=== PATIENT | female | born 1960 | race Caucasian/White ===

== ENCOUNTER 2023-05-07 05:55 | Inpatient (IN) | payer MEDICARE, OTHER ==
[2023-05-07] MEDS ORDERED: ONDANSETRON 4 MG/2 ML VIAL IVP STA (06:15)
[2023-05-07] MEDS ORDERED: SODIUM CHLORIDE 0.9% 1,000 ML IV STA (06:15)
[2023-05-07] MEDS ORDERED: HYDROmorphone 0.5 MG/0.5 ML SYRINGE IVP STA ×2 (06:15→09:42)
[2023-05-07 06:35] LABS: Basophils % (A) 0 %; Eosinophils # (A) 0.3 k/uL (0-0.7); Eosinophils % (A) 4 %; HCT 42.6 % (34.0-46.0); Lymphocytes # (A) 2.8 k/uL (1.0-4.8); Lymphocytes % (A) 39 %; MCH 30.1 pg (25.0-35.0); MCHC 32.8 g/dL (31.0-37.0); MCV 91.6 fL (80.0-100.0); Mean Platelet Volume 7.9; Monocytes # (A) 0.5 k/uL (0-1.0); Monocytes % (A) 7 %; Neutrophils # (A) 3.4 k/uL (1.3-7.7); Neutrophils % (A) 48 %; Platelet Count 250 k/uL (150-450); RBC 4.64 m/uL (3.80-5.40); RDW 14.2 % (11.5-15.5); WBC 7.2 k/uL (3.8-10.6)
[2023-05-07 06:44] LABS: ALT 32 U/L (4-34); AST 29 U/L (14-36); African American GFR (CKD) >90 (>60 ml/min/1.73 sqM); Albumin 4.1 g/dL (3.5-5.0); Alkaline Phosphatase 65 U/L (38-126); Anion Gap 5 mmol/L; Blood Urea Nitrogen 20 mg/dL (7-17); Calcium 9.2 mg/dL (8.4-10.2); Carbon Dioxide 27 mmol/L (22-30); Chloride 106 mmol/L (98-107); Glucose 146 mg/dL (74-99); Magnesium 1.9 mg/dL (1.6-2.3); Non-African American GFR(CKD) >90 (>60 ml/min/1.73 sqM); Potassium 4.3 mmol/L (3.5-5.1); Sodium 138 mmol/L (137-145); Total Bilirubin 0.5 mg/dL (0.2-1.3); Total Protein 7.1 g/dL (6.3-8.2)
--- NOTE | 2023-05-07 06:52 | XR ---
EXAMINATION TYPE: XR chest 2V DATE OF EXAM: 05/07/2023 6:48 AM COMPARISON: None TECHNIQUE: XR chest 2V Frontal and lateral views of the chest. CLINICAL INDICATION:Female, 62 years old with history of Chest Pain; FINDINGS: Lungs/Pleura: There is no evidence of pleural effusion, focal consolidation, or pneumothorax. Elevat ion the right hemidiaphragm. Pulmonary vascularity: Unremarkable. Heart/mediastinum: Cardiomediastinal silhouette is unremarkable. Musculoskeletal: No acute osseous pathology. IMPRESSION: 1. No acute cardiopulmonary disease/process. 2. Elevation of the right hemidiaphragm.
[2023-05-07 06:53] LABS: NT-Pro-B-Type Natriuretic Pept <20 pg/mL
--- NOTE | 2023-05-07 07:03 | ED ---
Chest Pain HPI - General Chief Complaint: Chest Pain Stated Complaint: Chest and abdominal Pain Time Seen by Provider: 05/07/23 06:07 Source: patient, RN notes reviewed Mode of arrival: ambulatory Limitations: no limitations - History of Present Illness Initial Comments: 62-year-old female presents emergency Department with chief complaint of abdominal, or chest pain. Patient states started a couple hours prior arrival states that she does reflux for this. States that pain is worse when she takes a deep inspiration wrapping around her upper abdomen. Patient states that she lays on its worse. She denies any fevers or chills she developed some nausea site vomiting. No diarrhea no constipation denies any other associated symptoms. - Related Data Home Medications Medication Instructions Recorded Confirmed Cyclobenzaprine [Flexeril] 5 mg PO BID PRN 05/07/23 05/07/23 DULoxetine HCL [Cymbalta] 120 mg PO DAILY 05/07/23 05/07/23 Ergocalciferol [Vitamin D2 (1250 1,250 mcg PO WE 05/07/23 05/07/23 Mcg = 08733 Iu)] HYDROcodone/APAP 10-325MG [[place] 1 tab PO Q6H PRN 05/07/23 05/07/23 10-325] Mirtazapine [Remeron] 30 mg PO HS 05/07/23 05/07/23 busPIRone HCL 15 mg PO DAILY 05/07/23 05/07/23 busPIRone HCL 30 mg PO HS 05/07/23 05/07/23 metHOTREXate sodium [Methotrexate] 7.5 mg PO WE 05/07/23 05/07/23 Previous Rx's Medication Instructions Recorded Acetaminophen Tab [Tylenol] 650 mg PO Q6HR PRN tab 05/11/23 Albuterol Inhaler [Ventolin Hfa 2 puff INHALATION Q6H PRN 30 Days 05/11/23 Inhaler] #1 each Amoxic-Pot Clav 875-125Mg 1 tab PO Q12HR 7 Days #14 tab 05/11/23 [Augmentin 875-125] Benzocaine/Menthol Lozeng [Cepacol 1 each MUCOUS MEM Q4HR PRN lozenge 05/11/23 lozenge] Budesonide-Formot 160-4.5 Mcg 2 puff INHALATION BID 30 Days 05/11/23 [Symbicort 160-4.5 Mcg Inhaler] #10.2 gm Fluticasone Nasal [place] [Flonase 2 spray EA NOSTRIL DAILY #7 ml 05/11/23 Nasal [place]] Loratadine [Claritin] 5 mg PO DAILY #30 tab 05/11/23 predniSONE 10 mg PO DIRECTED #30 tab 05/11/23 Allergies Allergy/AdvReac Type Severity Reaction Status Date / Time No Known Allergies Allergy Verified 05/07/23 11:26 Review of Systems ROS Statement: Those systems with pertinent positive or pertinent negative responses have been documented in the HPI. ROS Other: All systems not noted in ROS Statement are negative. EKG Findings - EKG Comments: EKG Findings:: EKG performed at 6:06 sinus rhythm with rate of 91 [place] 174 QRS 101 QT/QTC 343/392, noted Q waves in lead 3, inverted T waves nonspecific - EKG Results: EKG: interpreted by RK Past Medical History Past Medical History: Diabetes Mellitus Past Surgical History: No Surgical Hx Reported Smoking Status: Never smoker Past Alcohol Use History: None Reported Past Drug Use History: None Reported - Past Family History Mother Family Medical History: Cancer Additional Family Medical History / Comment(s): ovarian cancer General Exam Limitations: no limitations General appearance: alert, in no apparent distress Head exam: Present: atraumatic, normocephalic, normal inspection Eye exam: Present: normal appearance, PERRL, EOMI. Absent: scleral icterus, conjunctival injection, periorbital swelling ENT exam: Present: normal exam, normal oropharynx, mucous membranes moist Neck exam: Present: normal inspection, full ROM. Absent: tenderness, meningismus, lymphadenopathy Respiratory exam: Present: normal lung sounds bilaterally. Absent: respiratory distress, wheezes, rales, rhonchi, stridor Cardiovascular Exam: Present: regular rate, normal rhythm, normal heart sounds. Absent: systolic murmur, diastolic murmur, rubs, gallop, clicks GI/Abdominal exam: Present: soft, tenderness, normal bowel sounds. Absent: distended, guarding, rebound, rigid Back exam: Absent: CVA tenderness (R), CVA tenderness (L) Neurological exam: Present: alert Skin exam: Present: warm, dry, intact, normal color. Absent: rash Course Vital Signs 05/07/23 05/07/23 05/07/23 05:59 06:58 07:20 Temperature 98.8 F Pulse Rate 95 95 70 Respiratory 19 18 18 Rate Blood Pressure 136/67 107/69 O2 Sat by Pulse 94 L 94 L 97 Oximetry 05/07/23 05/07/23 09:05 11:07 Temperature Pulse Rate 82 76 Respiratory 18 18 Rate Blood Pressure 103/48 137/81 O2 Sat by Pulse 91 L 91 L Oximetry Chest Pain MDM - MDM Was pt. sent in by a medical professional or institution (, PA, PSYCHOTHERAPIST COUNSELOR, urgent care, hospital, or shelter...) When possible be specific @ -No Did you speak to anyone other than the patient for history (EMS, parent, family, police, friend...)? What history was obtained from this source @ -No Did you review nursing and triage notes (agree or disagree)? Why? @ -I reviewed and agree with nursing and triage notes Were old charts reviewed (outside hosp., previous admission, EMS record, old EKG, old radiological studies, urgent care reports/EKG's, shelter records)? Report findings @ -No old charts were reviewed Differential Diagnosis (chest pain, altered mental status, abdominal pain women, abdominal pain men, vaginal bleeding, weakness, fever, dyspnea, syncope, headache, dizziness, GI bleed, back pain, seizure, CVA, palpatations, mental health, musculoskeletal)? @ -Differential Abdominal Pain Women: Appendicitis, Cholecystitis, diverticulosis, ischemic bowel, pancreatitis, hepatitis, UTI, gastroenteritis, AAA, incarcerated hernia, bowel obstruction, constipation, inflammatory bowel, hepatitis, peptic ulcer disease, splenic infarction, perforated viscus, vulvitis, ovarian torsion, PID, kidney stone, placenta abruption, this is not meant to be an all-inclusive listble EKG interpreted by me (3pts min.). @ -As above X-rays interpreted by me (1pt min.). @ -Chest x-ray shows no significant acute coronary Department process CT interpreted by me (1pt min.). @ -CT chest abdomen pelvis shows atelectasis type changes, there is evidence of subscapular splenic hematoma with hemorrhage within the pelvis U/S interpreted by me (1pt. min.). @ -None done What testing was considered but not performed or refused? (CT, X-rays, U/S, labs)? Why? @ -None What meds were considered but not given or refused? Why? @ -None Did you discuss the management of the patient with other professionals (professionals i.e. , PA, PSYCHOTHERAPIST COUNSELOR, lab, RT, psych nurse, psychosocial rehabilitation counselor, installation supervisor, teacher, school services officer, case therapist)? Give summary @ -Discuss case with Dr. Garcia for admission secondary to splenic laceration, hematoma. Patient will be admitted with repeat appendicitis, further evaluation Was smoking cessation discussed for >3mins.? @ -No Was critical care preformed (if so, how long)? @ -No Were there social determinants of health that impacted care today? How? (Homelessness, low income, unemployed, alcoholism, drug addiction, transportation, low edu. Level, literacy, decrease access to med. care, residential, rehab)? @ -No Was there de-escalation of care discussed even if they declined (Discuss DNR or withdrawal of care, Hospice)? DNR status @ -No What co-morbidities impacted this encounter? (DM, HTN, Smoking, COPD, CAD, Cancer, CVA, ARF, Chemo, Hep., AIDS, mental health diagnosis, sleep apnea, morbid obesity)? @ -None Was patient admitted / discharged? Hospital course, mention meds given and route, prescriptions, significant lab abnormalities, going to OR and other pertinent info. @ -Admitted patient has splenic hematoma possible laceration, blood within the pelvis. Patient will have close monitoring. Undiagnosed new problem with uncertain prognosis? @ -No Drug Therapy requiring intensive monitoring for toxicity (Heparin, Nitro, Insulin, Cardizem)? @ -No Were any procedures done? @ -No Diagnosis/symptom? @ -Splenic hematoma Acute, or Chronic, or Acute on Chronic? @ -Acute Uncomplicated (without systemic symptoms) or Complicated (systemic symptoms)? @ -complicated Side effects of treatment? @ -No Exacerbation, Progression, or Severe Exacerbation? @ -No Poses a threat to life or bodily function? How? (Chest pain, [place], [place], pneumonia, PE, COPD, DKA, ARF, appy, cholecystitis, CVA, Diverticulitis, Homicidal, Suicidal, threat to staff... and all critical care pts) @ -yes patient has intra-abdominal bleeding Disposition Clinical Impression: Spleen hematoma, Intractable abdominal pain Disposition: ADMITTED IP TO THIS HOSP Condition: Stable Time of Disposition: 09:27
[2023-05-07] MEDS ORDERED: HYDROmorphone 1 MG/ML 1 ML SYRINGE IVP STA (07:12)
[2023-05-07 07:18] LABS: INR 0.9 (<1.2); Partial Thromboplastin Time 22.9 sec (22.0-30.0); Prothrombin Time 9.9 sec (9.0-12.0)
--- NOTE | 2023-05-07 07:54 | US ---
EXAMINATION TYPE: US gallbladder DATE OF EXAM: 05/07/2023 COMPARISON: NONE CLINICAL INDICATION: Female, 62 years old with history of pain; pain exam limited due to body habitus and bowel gas. TECHNIQUE: Multiple sonographic images of the right upper quadrant are obtained. FINDINGS: EXAM MEASUREMENTS: Liver Length: 14.1 cm Gallbladder Wall: .2 cm CBD: .6 cm Right Kidney: 11.4 x 5.5 x 4.1 cm NUT PICKER NOTES: Pancreas: Obscured by bowel gas Liver: Increased attenuation Gallbladder: No stones seen Evidence for sonographic Triana's sign: No CBD: wnl Right Kidney: No hydronephrosis or masses seen Pancreas is obscured by overlying bowel gas. Liver is diffusely hyperechoic which limits evaluation f or small hepatic masses. No gross evidence of intrahepatic mass. No cholelithiasis, wall thickening, pericholecystic fluid identified. Per accountant systems, negative sonographic Triana sign. Common bile duct within normal limits. Right kidney is unremarkable without evidence of hydronephrosis, nephrolithias is, or solid mass. IMPRESSION: Limited examination due to patient's body habitus and overlying bowel gas. 1. No acute process. 2. Hepatic steatosis.
[2023-05-07] MEDS ORDERED: KETOROLAC 15 MG/ML 1 ML VIAL IVP STA (09:03)
[2023-05-07] MEDS ORDERED: ORPHENADRINE 30 MG/ML 2 ML VIAL IVP STA (09:07)
--- NOTE | 2023-05-07 09:16 | CT ---
EXAMINATION TYPE: CT abdomen pelvis w con CT DLP: 2090.1 mGycm, Automated exposure control for dose reduction was used. DATE OF EXAM: 05/07/2023 8:58 AM COMPARISON: Gallbladder ultrasound same date. CLINICAL INDICATION:Female, 62 years old with history of pain, radiates to back; Pain, radiates to ba ck TECHNIQUE: Standard CT of the abdomen and pelvis following the administration of 100 cc of Isovue 3 00 IV contrast material. Coronal and sagittal reformats were performed. FINDINGS: LOWER CHEST: Please see dedicated CTA chest for findings ABDOMEN LIVER: Hepatic lobe 1.5 cm hypodense lesion (series 501, image 32). Additional couple subcentimeter h ypodense foci within the liver which are too small to accurately characterize. GALLBLADDER AND BILE DUCTS: Unremarkable. PANCREAS: Unremarkable. SPLEEN: Heterogenous appearance with a subcapsular hematoma measuring 9.5 x 1.9 cm. No obvious active extravasation. Heterogenous appearance of the spleen. ADRENAL GLANDS: Unremarkable. KIDNEYS AND URETERS: No evidence of hydronephrosis or renal calculus. The kidneys enhance symmetrical ly. Subcentimeter hypodense focus within the which is too small characterize but likely represents a cyst. PELVIS BLADDER: Unremarkable REPRODUCTIVE: Unremarkable. ABDOMEN & PELVIS STOMACH AND BOWEL: Stomach and duodenum are unremarkable. The appendix is within normal limits. No fo jake wall thickening or surrounding inflammatory changes. Moderate amount of stool is present within t he ascending colon. Distal colonic diverticulosis without evidence for acute diverticulitis. No evide nce of bowel obstruction. PERITONEUM: No evidence of pneumoperitoneum. Small amount of complex fluid demonstrated within the pe lvis and paracolic gutter. VASCULATURE: No evidence of aortic aneurysm. Few pelvic phlebolith. MUSCULOSKELETAL: No acute osseous abnormalities LYMPH NODES: No gross evidence for lymphadenopathy. SOFT TISSUE/ABDOMINAL WALL: Small fat filled umbilical hernia. IMPRESSION: 1. Moderate size subcapsular splenic hematoma. Heterogenous appearance of the spleen. No convincing evidence for active extravasation. 2. Small amount of complex fluid within the left paracolic gutter and pelvis likely representing hemo rrhage. 3. Indeterminate echodense right hepatic lobe 1.5 cm lesion. Probable hemangioma. This could further confirmed with CT or MR abdomen liver mass protocol. 4. Colonic diverticulosis without evidence for acute diverticulitis. Findings called to and discussed with Dr. Dedoe at 9:10 AM on 05/07/2023.
--- NOTE | 2023-05-07 09:18 | CT ---
EXAMINATION TYPE: CT chest angio for PE CT DLP: 2090.1 mGycm, Automated exposure control for dose reduction was used. DATE OF EXAM: 05/07/2023 8:59 AM COMPARISON: Chest radiograph from same day. CLINICAL INDICATION:Female, 62 years old with history of pain, sob elevated D Dimer; Chest and abdomi nal pain TECHNIQUE/CONTRAST: CTA scan of the thorax is performed without and with IV Contrast, patient injected with 100 ml mL of Isovue 370, pulmonary embolism protocol. MIP images are created and reviewed. FINDINGS: Pulmonary Artery: There is no evidence for a filling defect within the pulmonary vasculature to sugge st acute pulmonary embolism. The pulmonary artery is of normal size. Lungs/Pleura: No pleural effusion or pneumothorax. Elevation the right hemidiaphragm. Bibasilar subse gmental atelectasis. Airway: Large airways are patent. Heart: Mildly enlarged. No pericardial effusion. Vasculature: No evidence of aortic aneurysm. Mediastinum: No evidence of adenopathy. Musculoskeletal: No acute osseous abnormalities Soft Tissues: Unremarkable. Lower neck: No significant findings. Upper Abdomen: Please refer to dedicated CT abdomen pelvis of same day for findings. IMPRESSION: 1. No evidence of pulmonary embolism. 2. Bibasilar subsegmental atelectasis.
[2023-05-07] MEDS ORDERED: ONDANSETRON 4 MG/2 ML VIAL IVP PRN (09:27)
[2023-05-07] MEDS ORDERED: NALOXONE 0.4 MG/ML 1 ML VIAL IV PRN (09:27)
[2023-05-07 09:39] LABS: Appearance,Urine Clear (Clear); Bilirubin,Urine Negative (Negative); Blood,Urine Negative (Negative); Glucose,Urine (UA) Trace (Negative); Ketones,Urine Trace (Negative); Leukocyte Esterase,Urine Negative (Negative); Nitrite,Urine Negative (Negative); PH, Urine 5.5 (5.0-8.0); Protein,Urine Trace (Negative)
[2023-05-07 09:40] LABS: Color,Urine Yellow; Specific Gravity,Urine >1.050 (1.001-1.035)
[2023-05-07 11:39] LABS: Basophils % (A) 0 %; Eosinophils # (A) 0.2 k/uL (0-0.7); Eosinophils % (A) 3 %; HCT 35.9 % (34.0-46.0); Lymphocytes # (A) 2.1 k/uL (1.0-4.8); Lymphocytes % (A) 35 %; MCHC 33.5 g/dL (31.0-37.0); MCV 92.8 fL (80.0-100.0); Mean Platelet Volume 8.4; Monocytes # (A) 0.5 k/uL (0-1.0); Monocytes % (A) 8 %; Neutrophils % (A) 51 %; Platelet Count 231 k/uL (150-450); RBC 3.87 m/uL (3.80-5.40); RDW 14.3 % (11.5-15.5); WBC 5.9 k/uL (3.8-10.6)
--- NOTE | 2023-05-07 12:31 | P.CONS ---
History of Present Illness - Reason for Consult Consult date: 05/07/23 Medical management - History of Present Illness History of present illness; patient is 62-year-old lady who is visiting [place] from [place] came to the ER because of abdominal pain. Patient sta wilian that she woke up this morning with abdominal pain that was located in the epigastric area, radiating towards her back. Associated with nausea and vomiting. Denied any fever or chills. Patient stated she felt as if something was wrapped around her upper part of abdominal. Denies any recent trauma to her belly. Denies being on any blood thinners. It was no complain of any altered bowel movements. Denies any blood in her stools. Denied any blood in the vomiting. Because of the symptoms patient came to the ER Initial lab work done in the ER showed CT abdominal and pelvis done showed moderate sized subcapsular splenic hematoma. Small amount of complex fluid in the left paracolic gutter and pelvis likely representing hemorrhage. Indeterminate echo dense right hepatic lobe, probable hemangioma. CT chest done showed no evidence of PE, bibasilar subsegmental atelectasis EKG done in the ER showed ventricle rate 91, QRS 101, no ST segment elevation seen, T-wave inversion seen in V3 leads Patient admitted to surgery REVIEW OF SYSTEMS: CONSTITUTIONAL: No fever, no malaise, no fatigue. HEENT: No recent visual problems or hearing problems. Denied any sore throat. CARDIOVASCULAR: No chest pain, orthopnea, PND, no palpitations, no syncope. PULMONARY: No shortness of breath, no cough, no hemoptysis. GASTROINTESTINAL: As mentioned in HPI NEUROLOGICAL: No headaches, no weakness, no numbness. HEMATOLOGICAL: Denies any bleeding or petechiae. GENITOURINARY: Denies any burning micturition, frequency, or urgency. MUSCULOSKELETAL/RHEUMATOLOGICAL: Denies any joint pain, swelling, or any muscle pain. ENDOCRINE: Denies any polyuria or polydipsia. The rest of the 14-point review of systems is negative. PHYSICAL EXAMINATION: GENERAL: The patient is alert and oriented x3, not in any acute distress. Well developed, well nourished. HEENT: Pupils are round and equally reacting to light. EOMI. No scleral icterus. No conjunctival pallor. Normocephalic, atraumatic. No pharyngeal erythema. No thyromegaly. CARDIOVASCULAR: S1 and S2 present. No murmurs, rubs, or gallops. PULMONARY: Chest is clear to auscultation, no wheezing or crackles. ABDOMEN: Soft, tenderness left upper quadrant, normoactive bowel sounds. No palpable organomegaly. MUSCULOSKELETAL: No joint swelling or deformity. EXTREMITIES: No cyanosis, clubbing, or pedal edema. NEUROLOGICAL: Gross neurological examination did not reveal any focal deficits. SKIN: No rashes. Assessment and plan Abdominal pain Subcapsular splenic hematoma Complex fluid in the left paracolic gutter representing hemorrhage History of fibromyalgia Monitor vital signs Monitor CBC Monitor CMP Continue telemetry monitoring Monitor CBC Trend troponins Continue pain management per surgery Resume home meds Labs and medication were reviewed.. Continue same treatment. Continue with symptomatic treatment. Resume home medication. Monitor labs and vitals. DVT and GI prophylaxis. Further recommendations as per clinical course of the patient Dictation was produced using [employer] dictation software. please excuse any grammatical, word or spelling errors. Past Medical History Past Medical History: Diabetes Mellitus Past Surgical History: No Surgical Hx Reported Smoking Status: Never smoker Past Alcohol Use History: None Reported Past Drug Use History: None Reported Medications and Allergies Home Medications Medication Instructions Recorded Confirmed Type Cyclobenzaprine [Flexeril] 5 mg PO BID PRN 05/07/23 05/07/23 History DULoxetine HCL [Cymbalta] 120 mg PO DAILY 05/07/23 05/07/23 History Ergocalciferol [Vitamin D2 (1250 1,250 mcg PO WE 05/07/23 05/07/23 History Mcg = 46302 Iu)] HYDROcodone/APAP 10-325MG [[place] 1 tab PO Q6H PRN 05/07/23 05/07/23 History 10-325] Mirtazapine [Remeron] 30 mg PO HS 05/07/23 05/07/23 History busPIRone HCL 15 mg PO DAILY 05/07/23 05/07/23 History busPIRone HCL 30 mg PO HS 05/07/23 05/07/23 History metHOTREXate sodium [Methotrexate] 7.5 mg PO WE 05/07/23 05/07/23 History Allergies Allergy/AdvReac Type Severity Reaction Status Date / Time No Known Allergies Allergy Verified 05/07/23 11:26 Physical Exam Vitals: Vital Signs Temp Pulse Resp BP Pulse Ox 05/07/23 11:07 76 18 137/81 91 L 05/07/23 09:05 82 18 103/48 91 L 05/07/23 07:20 70 18 97 05/07/23 06:58 95 18 107/69 94 L 05/07/23 05:59 98.8 F 95 19 136/67 94 L Intake and Output 05/06/23 05/07/23 05/07/23 22:59 06:59 14:59 Other: Weight 86.183 kg Results CBC & Chem 7: 05/07/23 11:00 05/07/23 06:23 Labs: Abnormal Lab Results - Last 24 Hours (Table) 05/07/23 05/07/23 05/07/23 Range/Units 06:23 06:23 09:17 D-Dimer 0.71 H (<0.60) mg/L FEU BUN 20 H (7-17) mg/dL Glucose 146 H (74-99) mg/dL Ur Specific [place] >1.050 H (1.001-1.035) Urine Protein Trace H (Negative) Urine Glucose (UA) Trace H (Negative) Urine Ketones Trace H (Negative)
[2023-05-07] MEDS: HYDROmorphone 0.5 MG/0.5 ML SYRINGE IVP PRN (13:39)
--- NOTE | 2023-05-07 14:24 | P.GSHP ---
History of Present Illness H&P Date: 05/07/23 Chief Complaint: Splenic hematoma This a 8-year-old female who presented emergently complaints of left upper quadrant pain. Patient was worked up found have evidence of a splenic hematoma on computed tomography scan. Patient denies any history of trauma. She states she's had no falls or any traumatic injury of any sort. Patient does not take blood thinners. Past Medical History Past Medical History: Diabetes Mellitus Past Surgical History: No Surgical Hx Reported Smoking Status: Never smoker Past Alcohol Use History: None Reported Past Drug Use History: None Reported Medications and Allergies Home Medications Medication Instructions Recorded Confirmed Type Cyclobenzaprine [Flexeril] 5 mg PO BID PRN 05/07/23 05/07/23 History DULoxetine HCL [Cymbalta] 120 mg PO DAILY 05/07/23 05/07/23 History Ergocalciferol [Vitamin D2 (1250 1,250 mcg PO WE 05/07/23 05/07/23 History Mcg = 59446 Iu)] HYDROcodone/APAP 10-325MG [[place] 1 tab PO Q6H PRN 05/07/23 05/07/23 History 10-325] Mirtazapine [Remeron] 30 mg PO HS 05/07/23 05/07/23 History busPIRone HCL 15 mg PO DAILY 05/07/23 05/07/23 History busPIRone HCL 30 mg PO HS 05/07/23 05/07/23 History metHOTREXate sodium [Methotrexate] 7.5 mg PO WE 05/07/23 05/07/23 History Allergies Allergy/AdvReac Type Severity Reaction Status Date / Time No Known Allergies Allergy Verified 05/07/23 11:26 Surgical - Exam Vital Signs Temp Pulse Resp BP Pulse Ox 98.8 F 95 19 136/67 94 L 05/07/23 05:59 05/07/23 05:59 05/07/23 05:59 05/07/23 05:59 05/07/23 05:59 - General well developed, well nourished, no distress - Eyes PERRL - ENT normal pinna - Neck no masses - Respiratory normal expansion - Cardiovascular Rhythm: regular - Abdomen Mild left upper quadrant tenderness Abdomen: soft Results - Labs 05/07/23 11:00 05/07/23 06:23 Abnormal Lab Results - Last 24 Hours (Table) 05/07/23 05/07/23 05/07/23 Range/Units 06:23 06: 09:17 D-Dimer 0.71 H (<0.60) mg/L FEU BUN 20 H (7-17) mg/dL Glucose 146 H (74-99) mg/dL Ur Specific [place] >1.050 H (1.001-1.035) Urine Protein Trace H (Negative) Urine Glucose (UA) Trace H (Negative) Urine Ketones Trace H (Negative) Diabetes panel 05/07/23 Range/Units 06:23 Sodium 138 (137-145) mmol/L Potassium 4.3 (3.5-5.1) mmol/L Chloride 106 (98-107) mmol/L Carbon Dioxide 27 (22-30) mmol/L BUN 20 H (7-17) mg/dL Creatinine 0.69 (0.52-1.04) mg/dL Glucose 146 H (74-99) mg/dL Calcium 9.2 (8.4-10.2) mg/dL AST 29 (14-36) U/L ALT 32 (4-34) U/L Alkaline Phosphatase 65 (38-126) U/L Total Protein 7.1 (6.3-8.2) g/dL Albumin 4.1 (3.5-5.0) g/dL Calcium panel 05/07/23 Range/Units 06: Calcium 9.2 (8.4-10.2) mg/dL Albumin 4.1 (3.5-5.0) g/dL Pituitary panel 05/07/23 Range/Units 06:23 Sodium 138 (137-145) mmol/L Potassium 4.3 (3.5-5.1) mmol/L Chloride 106 (98-107) mmol/L Carbon Dioxide 27 (22-30) mmol/L BUN 20 H (7-17) mg/dL Creatinine 0.69 (0.52-1.04) mg/dL Glucose 146 H (74-99) mg/dL Calcium 9.2 (8.4-10.2) mg/dL Adrenal panel 05/07/23 Range/Units 06:23 Sodium 138 (137-145) mmol/L Potassium 4.3 (3.5-5.1) mmol/L Chloride 106 (98-107) mmol/L Carbon Dioxide 27 (22-30) mmol/L BUN 20 H (7-17) mg/dL Creatinine 0.69 (0.52-1.04) mg/dL Glucose 146 H (74-99) mg/dL Calcium 9.2 (8.4-10.2) mg/dL Total Bilirubin 0.5 (0.2-1.3) mg/dL AST 29 (14-36) U/L ALT 32 (4-34) U/L Alkaline Phosphatase 65 (38-126) U/L Total Protein 7.1 (6.3-8.2) g/dL Albumin 4.1 (3.5-5.0) g/dL - Imaging CT scan - abdomen: report reviewed (Subcapsular splenic hematoma) Assessment and Plan Assessment: Spontaneous splenic hematoma. Patient will be observed closely. If she shows any evidence of bleeding she may require exploratory laparotomy.
[2023-05-07] MEDS: HYDROmorphone 1 MG/ML 1 ML SYRINGE IVP PRN ×3 (15:56→21:57)
[2023-05-07 16:22] LABS: Glucose,Whole Blood 115 mg/dL (70-110)
[2023-05-07] MEDS: CYCLOBENZAPRINE 5 MG TAB PO PRN (18:48)
[2023-05-07] MEDS: busPIRone HCl 10 MG TAB PO SCH (21:10)
[2023-05-07] MEDS: BUTALB/APAP/CAFF 50-325-40MG TAB PO PRN (21:10)
[2023-05-07] MEDS: MIRTAZAPINE 15 MG TAB PO SCH (21:10)
[2023-05-07 21:59] LABS: HGB 11.7 gm/dL (11.4-16.0); Hypochromasia Slight; MCH 30.2 pg (25.0-35.0); MCHC 31.7 g/dL (31.0-37.0); MCV 95.5 fL (80.0-100.0); Mean Platelet Volume 9.8; Platelet Count 246 k/uL (150-450); RBC 3.88 m/uL (3.80-5.40); RDW 14.3 % (11.5-15.5); WBC 8.5 k/uL (3.8-10.6)
[2023-05-07 22:46] LABS: Glucose,Whole Blood 173 mg/dL (70-110)
[2023-05-07 23:29] LABS: Glucose,Whole Blood 152 mg/dL (70-110)
[2023-05-08] MEDS: HYDROmorphone 1 MG/ML 1 ML SYRINGE IVP PRN ×3 (02:29→12:12)
[2023-05-08 03:18] LABS: Basophils % (A) 0 %; Eosinophils # (A) 0.1 k/uL (0-0.7); Eosinophils % (A) 1 %; HGB 10.5 gm/dL (11.4-16.0); Lymphocytes # (A) 1.7 k/uL (1.0-4.8); Lymphocytes % (A) 25 %; MCH 31.1 pg (25.0-35.0); MCHC 32.9 g/dL (31.0-37.0); MCV 94.4 fL (80.0-100.0); Mean Platelet Volume 8.6; Monocytes # (A) 0.4 k/uL (0-1.0); Monocytes % (A) 7 %; Neutrophils # (A) 4.4 k/uL (1.3-7.7); Neutrophils % (A) 65 %; Platelet Count 207 k/uL (150-450); RBC 3.39 m/uL (3.80-5.40); RDW 14.5 % (11.5-15.5); WBC 6.8 k/uL (3.8-10.6)
[2023-05-08 05:49] LABS: Glucose,Whole Blood 161 mg/dL (70-110)
[2023-05-08 08:20] LABS: Basophils % (A) 0 %; Eosinophils # (A) 0.1 k/uL (0-0.7); Eosinophils % (A) 2 %; HCT 30.4 % (34.0-46.0); HGB 9.9 gm/dL (11.4-16.0); Lymphocytes # (A) 1.8 k/uL (1.0-4.8); Lymphocytes % (A) 31 %; MCH 30.4 pg (25.0-35.0); MCHC 32.5 g/dL (31.0-37.0); MCV 93.6 fL (80.0-100.0); Mean Platelet Volume 8.9; Monocytes # (A) 0.5 k/uL (0-1.0); Monocytes % (A) 9 %; Neutrophils # (A) 3.3 k/uL (1.3-7.7); Neutrophils % (A) 56 %; Platelet Count 178 k/uL (150-450); RBC 3.24 m/uL (3.80-5.40); RDW 14.3 % (11.5-15.5); WBC 5.9 k/uL (3.8-10.6)
[2023-05-08] MEDS: busPIRone HCl 5 MG TAB PO SCH (08:56)
[2023-05-08] MEDS: DULoxetine HCL 60 MG CAPSULE.DR PO SCH (08:56)
[2023-05-08] MEDS: CYCLOBENZAPRINE 5 MG TAB PO PRN ×2 (09:07→22:48)
[2023-05-08] MEDS: BUTALB/APAP/CAFF 50-325-40MG TAB PO PRN ×2 (09:07→14:41)
[2023-05-08 11:49] LABS: Glucose,Whole Blood 129 mg/dL (70-110)
[2023-05-08] MEDS ORDERED: BENZOCAINE/MENTHOL LOZENG 1 EACH LOZENGE MUCOUS MEM PRN (12:57)
[2023-05-08] MEDS ORDERED: IPRATROPIUM-ALBUTEROL 3 ML NEB INHALATION PRN (12:57)
[2023-05-08] MEDS ORDERED: DEXTROSE 50% SYRINGE 50 ML IVP PRN ×2 (12:58)
--- NOTE | 2023-05-08 13:32 | P.PN ---
Subjective Progress Note Date: 05/08/23 CHIEF COMPLAINT: Splenic hematoma HISTORY OF PRESENT ILLNESS: Patient reports that the left-sided abdominal pain is improving. She is complaining still of some right-sided abdominal pain. She rates the pain about a 4 out of 10. Her hemoglobin has decreased from 10.5-9.9. She has been up and ambulating. She denies any fall or somatic injury. She denies any blood thinners. Afebrile. PHYSICAL EXAM: VITAL SIGNS: Reviewed. GENERAL: Well-developed in no acute distress. ABDOMEN: Soft. Nondistended. Tenderness with palpation in the left upper quadrant epigastric and right upper quadrant NEUROLOGIC: Alert and oriented. Cranial nerves II through XII grossly intact. ASSESSMENT: 1. Spontaneous splenic hematoma PLAN: -Continue to observe -Start full liquid diet -Repeat CBC in a.m. -Continue pain management Physician Warranty Administrator note has been reviewed by physician. Signing provider agrees with the documented findings, assessment, and plan of care. Objective - Vital Signs Vital signs: Vital Signs Temp 99.6 F 05/08/23 07:46 Pulse 79 05/08/23 07:46 Resp 18 05/08/23 07:46 BP 125/65 05/08/23 07:46 Pulse Ox 94 L 05/08/23 07:46 FiO2 Intake & Output 05/07/23 05/08/23 05/08/23 18:59 06:59 18:59 Weight 86.183 kg Other: # Voids 3 2 - Labs CBC & Chem 7: 05/08/23 08:08 05/07/23 06:23 Labs: Abnormal Lab Results - Last 24 Hours (Table) 05/07/23 05/07/23 05/07/23 Range/Units 16:21 22:44 23:26 RBC (3.80-5.40) m/uL Hgb (11.4-16.0) gm/dL Hct (34.0-46.0) % POC Glucose (mg/dL) 115 H 173 H 152 H (70-110) mg/dL 05/08/23 05/08/23 05/08/23 Range/Units 02:54 05:44 08:08 RBC 3.39 L 3.24 L (3.80-5.40) m/uL Hgb 10.5 L 9.9 L (11.4-16.0) gm/dL Hct 32.0 L 30.4 L (34.0-46.0) % POC Glucose (mg/dL) 161 H (70-110) mg/dL 05/08/23 Range/Units 11:47 RBC (3.80-5.40) m/uL Hgb (11.4-16.0) gm/dL Hct (34.0-46.0) % POC Glucose (mg/dL) 129 H (70-110) mg/dL
[2023-05-08] MEDS: LORATADINE 10 MG TAB PO SCH (13:46)
[2023-05-08] MEDS: FLUTICASONE 50MCG/SPRAY NASAL 16GM EA NOSTRIL SCH (14:03)
[2023-05-08] MEDS: HYDROmorphone 0.5 MG/0.5 ML SYRINGE IVP PRN ×3 (14:42→22:46)
--- NOTE | 2023-05-08 15:41 | P.PN ---
Subjective Progress Note Date: 05/08/23 Patient is evaluated today resting in bed, reports abdominal pain has improved from yesterday. Hemoglobin dropped to 9.9 down from 14 on admission. Patient is being followed closely by general surgery and monitoring patient may possibly need an exploratory laparotomy. Additionally patient continues to report shortness of breath and requiring 2 L of nasal cannula with hypoxia down into the 80-89% on room air this is an ongoing over the last 3 weeks per patient. She is also reporting a cough. Patient has evidence of infiltrate on her imaging patient will be started on empiric antibiotics for possible pneumonia. Review of Systems Constitutional: Denied any fatigue denied any fever. Cardio vascular: denied any chest pain, palpitations Gastrointestinal: denied any nausea, vomiting, diarrhea Pulmonary: Denied any shortness of breath cough Neurologic denied any new focal deficits All inpatient medications were reviewed and appropriate changes in these medications as dictated in the interval history and assessment and plan. PHYSICAL EXAMINATION: GENERAL: The patient is alert and oriented x3, not in any acute distress. Well developed, well nourished. HEENT: Pupils are round and equally reacting to light. EOMI. No scleral icterus. No conjunctival pallor. Normocephalic, atraumatic. No pharyngeal erythema. No thyromegaly. CARDIOVASCULAR: S1 and S2 present. No murmurs, rubs, or gallops. PULMONARY: Coarse lung sounds bilateral bases ABDOMEN: Soft, nontender, nondistended, normoactive bowel sounds. No palpable organomegaly. MUSCULOSKELETAL: No joint swelling or deformity. EXTREMITIES: No cyanosis, clubbing, or pedal edema. NEUROLOGICAL: Gross neurological examination did not reveal any focal deficits. SKIN: No rashes. Assessment Abdominal pain with findings of splenic hematoma and left paracolic gutter hemorrhage on imaging Anemia possibly acute blood loss Acute hypoxic respiratory failure likely due to basilar atelectasis versus pneumonia Diabetes mellitus type 2 History of psoriatic arthritis History of migraines Remote history of DVT in her 22 depression GI prophylaxis DVT prophylaxis SCDs Full Code Plan Continue to monitor hemoglobin closely general surgery following patient may need exploratory laparotomy Check procalcitonin level, empiric antibiotics started with IV ceftriaxone Incentive spirometer recommended 10 x an hr while awake. Repeat CBC in a.m. The impression and plan of care has been dictated by Sapphire Augustine, Nurse Practitioner as directed. Dr. Nadir MD I have performed a history and physical examination and medical decision making of this patient, discussed the same with the dictator, and agree with the dictators assessment and plan as written, documented as a scribe. Based on total visit time, I have performed more than 50% of this visit. Objective - Vital Signs Vital signs: Vital Signs Temp 99.6 F 05/08/23 07:46 Pulse 79 05/08/23 07:46 Resp 18 05/08/23 07:46 BP 125/65 05/08/23 07:46 Pulse Ox 94 L 05/08/23 07:46 FiO2 Intake & Output 05/07/23 05/08/23 05/08/23 18:59 06:59 18:59 Weight 86.183 kg Other: # Voids 3 2 - Labs CBC & Chem 7: 05/08/23 08:08 05/07/23 06:23 Labs: Abnormal Lab Results - Last 24 Hours (Table) 05/07/23 05/07/23 05/07/23 Range/Units 16:21 22:44 23:26 RBC (3.80-5.40) m/uL Hgb (11.4-16.0) gm/dL Hct (34.0-46.0) % POC Glucose (mg/dL) 115 H 173 H 152 H (70-110) mg/dL 05/08/23 05/08/23 05/08/23 Range/Units 02:54 05:44 08:08 RBC 3.39 L 3.24 L (3.80-5.40) m/uL Hgb 10.5 L 9.9 L (11.4-16.0) gm/dL Hct 32.0 L 30.4 L (34.0-46.0) % POC Glucose (mg/dL) 161 H (70-110) mg/dL 05/08/23 Range/Units 11:47 RBC (3.80-5.40) m/uL Hgb (11.4-16.0) gm/dL Hct (34.0-46.0) % POC Glucose (mg/dL) 129 H (70-110) mg/dL Assessment and Plan Time with Patient: Less than 30
[2023-05-08] MEDS: IPRATROPIUM-ALBUTEROL 3 ML NEB INHALATION SCH ×2 (16:12→20:24)
[2023-05-08 16:53] LABS: Glucose,Whole Blood 129 mg/dL (70-110)
[2023-05-08] MEDS: INSULIN ASPART (NovoLOG) 100 UNIT/ML VIAL SQ SCH ×2 (17:32→22:04)
[2023-05-08 21:12] LABS: Glucose,Whole Blood 146 mg/dL (70-110)
[2023-05-08] MEDS: MIRTAZAPINE 15 MG TAB PO SCH (22:46)
[2023-05-08] MEDS: busPIRone HCl 10 MG TAB PO SCH (22:46)
[2023-05-09] MEDS: HYDROmorphone 0.5 MG/0.5 ML SYRINGE IVP PRN ×4 (01:45→20:14)
[2023-05-09 06:16] LABS: Glucose,Whole Blood 133 mg/dL (70-110)
[2023-05-09] MEDS: INSULIN ASPART (NovoLOG) 100 UNIT/ML VIAL SQ SCH ×4 (06:21→20:12)
[2023-05-09] MEDS: PANTOPRAZOLE 40 MG TABLET PO SCH (06:31)
[2023-05-09 07:04] LABS: HCT 27.5 % (34.0-46.0); MCH 30.7 pg (25.0-35.0); MCV 93.1 fL (80.0-100.0); Mean Platelet Volume 8.2; Platelet Count 158 k/uL (150-450); RBC 2.95 m/uL (3.80-5.40)
[2023-05-09] MEDS: IPRATROPIUM-ALBUTEROL 3 ML NEB INHALATION SCH ×4 (08:02→21:05)
[2023-05-09] MEDS: LORATADINE 10 MG TAB PO SCH (09:42)
[2023-05-09] MEDS: DULoxetine HCL 60 MG CAPSULE.DR PO SCH (09:42)
[2023-05-09] MEDS: busPIRone HCl 5 MG TAB PO SCH (09:42)
[2023-05-09] MEDS: FLUTICASONE 50MCG/SPRAY NASAL 16GM EA NOSTRIL SCH (09:43)
[2023-05-09] MEDS ORDERED: ACETAMINOPHEN TAB 325 MG TAB PO PRN (10:14)
[2023-05-09 12:03] LABS: Glucose,Whole Blood 157 mg/dL (70-110)
--- NOTE | 2023-05-09 13:59 | P.PN ---
Subjective Progress Note Date: 05/09/23 CHIEF COMPLAINT: Splenic hematoma HISTORY OF PRESENT ILLNESS: Patient reports that the left-sided abdominal pain is improving. She is complaining still of some right-sided abdominal pain. She rates the pain about a 3 out of 10. Her hemoglobin has decreased from 9.9 to 9.0. She has been up and ambulating. Patient did have a temp of 101.5 this morning. Medicine service has ordered a chest x-ray. Patient did report cough this morning. PHYSICAL EXAM: VITAL SIGNS: Reviewed. GENERAL: Well-developed in no acute distress. ABDOMEN: Soft. Nondistended. Tenderness with palpation in the left upper quadrant epigastric and right upper quadrant NEUROLOGIC: Alert and oriented. Cranial nerves II through XII grossly intact. ASSESSMENT: 1. Spontaneous splenic hematoma PLAN: -Continue to monitor -Continue full liquid diet -Repeat CBC in a.m. -Continue pain management -Encouraged patient to use incentive spirometer Physician Marine Biologist note has been reviewed by physician. Signing provider agrees with the documented findings, assessment, and plan of care. Objective - Vital Signs Vital signs: Vital Signs Temp 101.5 F H 05/09/23 07:52 Pulse 88 05/09/23 11:48 Resp 18 05/09/23 07:52 BP 109/57 05/09/23 07:52 Pulse Ox 94 L 05/09/23 08:05 FiO2 Intake & Output 05/08/23 05/09/23 05/09/23 18:59 06:59 18:59 Other: # Voids 2 2 - Labs CBC & Chem 7: 05/09/23 06:44 05/07/23 06:23 Labs: Abnormal Lab Results - Last 24 Hours (Table) 05/08/23 05/08/23 05/09/23 Range/Units 16:51 21:11 06:14 RBC (3.80-5.40) m/uL Hgb (11.4-16.0) gm/dL Hct (34.0-46.0) % POC Glucose (mg/dL) 129 H 146 H 133 H (70-110) mg/dL Hemoglobin A1c (<=6.0) % 05/09/23 05/09/23 05/09/23 Range/Units 06:44 06:44 11:58 RBC 2.95 L (3.80-5.40) m/uL Hgb 9.0 L (11.4-16.0) gm/dL Hct 27.5 L (34.0-46.0) % POC Glucose (mg/dL) 157 H (70-110) mg/dL Hemoglobin A1c 6.5 H (<=6.0) %
--- NOTE | 2023-05-09 15:58 | XR ---
EXAMINATION TYPE: XR chest 2V DATE OF EXAM: 05/09/2023 COMPARISON: 05/07/2023 TECHNIQUE: PA and lateral views submitted. HISTORY: FEVER AND HYPOXIA FINDINGS: Bilateral lower lobe infiltrate greater on the right. Limited inspiration. Mild cardiomegaly. No over t failure or pneumothorax. Osseous structures stable. IMPRESSION: 1. Suspect right lower lobe pneumonia.
[2023-05-09 17:13] LABS: Glucose,Whole Blood 121 mg/dL (70-110)
[2023-05-09] MEDS: SODIUM CHLORIDE 0.9% 1,000 ML IV SCH (17:39)
[2023-05-09 19:50] LABS: Glucose,Whole Blood 124 mg/dL (70-110)
[2023-05-09] MEDS: MIRTAZAPINE 15 MG TAB PO SCH (20:14)
[2023-05-09] MEDS: busPIRone HCl 10 MG TAB PO SCH (20:14)
--- NOTE | 2023-05-09 20:54 | P.CONS ---
History of Present Illness - Reason for Consult Consult date: 05/09/23 - History of Present Illness Patient is a 62-year-old female with a past medical history significant for diabetes mellitus psoriatic arthritis patient lives in [place] and she came to the [place] area to participate in the [facility] float down patient mention she did pack herself and got here, Monday morning around 3 she started having a pain to the upper abdominal area mostly to the left side patient was describing the pain to be more of a sharp and colicky intensity currently to get worse with the next hour or 2 we almost on a 10 for the patient present to the hospital patient mention she will nauseated but no vomiting denies having any diarrhea or constipation and no history of any trauma on presentation to the hospital patient was afebrile however she did spike a fever this morning of 101.5 F patient was not significantly tachycardic hypotensive or hypoxic patient also have a normal white count during this hospital stay she did have a normal hemoglobin of 14 however is down to 9.0 creatinine has been normal her liver enzymes are normal procalcitonin 0.[address] did [address] a [address] of abdominal pelvis which did shows moderate-sized subcapsular splenic hematoma no convincing evidence of active extravasation small amount of complex fluid within the left paracolic gutter likely presenting hemorrhage patient also have a CT angiogram of the chest no evidence of PE bibasilar subsegmental atelectasis patient has been empirically started on Rocephin infectious he was consulted because of her fever and further work-up patient is currently admitted under surgery and is being observed for her subcapsular splenic hematoma patient denies any headache URI symptoms no chest pain or shortness with occasional cough no urinary symptoms abdominal pain is currently controlled with pain medication Past Medical History Past Medical History: Diabetes Mellitus Additional Past Medical History / Comment(s): Psoriatic arthritis, migraines with botox every 3 months, reports had a blood clot in her 20s after cutting her leg (Right) History of Any Multi-Drug Resistant Organisms: None Reported Past Surgical History: No Surgical Hx Reported Past Anesthesia/Blood Transfusion Reactions: No Reported Reaction Smoking Status: Never smoker Past Alcohol Use History: None Reported Past Drug Use History: None Reported - Past Family History Mother Family Medical History: Cancer Additional Family Medical History / Comment(s): ovarian cancer Medications and Allergies Home Medications Medication Instructions Recorded Confirmed Type Cyclobenzaprine [Flexeril] 5 mg PO BID PRN 05/07/23 05/07/23 History DULoxetine HCL [Cymbalta] 120 mg PO DAILY 05/07/23 05/07/23 History Ergocalciferol [Vitamin D2 (1250 1,250 mcg PO WE 05/07/23 05/07/23 History Mcg = 18390 Iu)] HYDROcodone/APAP 10-325MG [[place] 1 tab PO Q6H PRN 05/07/23 05/07/23 History 10-325] Mirtazapine [Remeron] 30 mg PO HS 05/07/23 05/07/23 History busPIRone HCL 15 mg PO DAILY 05/07/23 05/07/23 History busPIRone HCL 30 mg PO HS 05/07/23 05/07/23 History metHOTREXate sodium [Methotrexate] 7.5 mg PO WE 05/07/23 05/07/23 History Allergies Allergy/AdvReac Type Severity Reaction Status Date / Time No Known Allergies Allergy Verified 05/07/23 11:26 Physical Exam Vitals: Vital Signs Temp Pulse Pulse Resp BP Pulse Ox 05/09/23 11:48 88 05/09/23 11:35 86 05/09/23 08:13 87 05/09/23 08:05 94 L 05/09/23 08:02 85 05/09/23 07:52 101.5 F H 84 18 109/57 94 L 05/09/23 01:39 98.9 F 83 19 123/60 94 L 05/08/23 20:38 92 05/08/23 20:24 88 05/08/23 20:15 97.5 F L 104 H 19 155/71 96 05/08/23 16:25 86 05/08/23 16:13 84 95 05/08/23 15:39 98.7 F 84 18 101/69 92 L Intake and Output 05/08/23 05/09/23 05/09/23 22:59 06:59 14:59 Other: # Voids 2 2 Results CBC & Chem 7: 05/11/23 04:17 05/11/23 04:17 Labs: Abnormal Lab Results - Last 24 Hours (Table) 05/08/23 05/08/23 05/09/23 Range/Units 16:51 21:11 06:14 RBC (3.80-5.40) m/uL Hgb (11.4-16.0) gm/dL Hct (34.0-46.0) % POC Glucose (mg/dL) 129 H 146 H 133 H (70-110) mg/dL Hemoglobin A1c (<=6.0) % 05/09/23 05/09/23 05/09/23 Range/Units 06:44 06:44 11:58 RBC 2.95 L (3.80-5.40) m/uL Hgb 9.0 L (11.4-16.0) gm/dL Hct 27.5 L (34.0-46.0) % POC Glucose (mg/dL) 157 H (70-110) mg/dL Hemoglobin A1c 6.5 H (<=6.0) % Assessment and Plan Plan: 1patient with a fever in this patient present to hospital abdominal pain and has been diagnosed with the splenic subcapsular hematoma in the last evidence of some free fluid in the left paracolic gutter concerning for hemorrhage patient also noticed to have a drop in her hemoglobin and high clinical suspicious for hemorrhage to be the etiology of this a low-grade fever as a CT abdominal pelvis did not show evidence of colitis or abscess CT angiogram was negative for any pneumonia and the patient did have a normal procalcitonin. 2we will switch antibiotic coverage to Zosyn to better cover for any intra- abdominal pathogen keeping in mind splenic subcapsular hematoma and there is some evidence of left paracolic fluid possible hemorrhage 3 patient will benefit from repeat CT in the a.m. to make sure no evidence of any worsening hematoma or continuous leak keeping in mind drop in the hemoglobin that may need surgery 4we will recheck inflammatory markers- We will follow on clinical condition and cultures to further adjust medication if needed Thank you for this consultation we will follow the patient along with you Dictation was produced using [employer] dictation software. please excuse any grammatical, word or spelling errors. Time with Patient: Greater than 30
--- NOTE | 2023-05-09 22:09 | P.PN ---
Subjective Progress Note Date: 05/09/23 Patient is evaluated today resting in bed, reports abdominal pain has improved from yesterday. Hemoglobin dropped to 9.9 down from 14 on admission. Patient is being followed closely by general surgery and monitoring patient may possibly need an exploratory laparotomy. Additionally patient continues to report shortness of breath and requiring 2 L of nasal cannula with hypoxia down into the 80-89% on room air this is an ongoing over the last 3 weeks per patient. She is also reporting a cough. Patient has evidence of infiltrate on her imaging patient will be started on empiric antibiotics for possible pneumonia. 05/09/2023 Patient is evaluated today sitting up at the bedside. Continues to report shortness of breath and requires 2L of oxygen. Feels the updrafts are helping. Covid is negative. Procalcitonin is normal. Had a follow up chest xray which shows bilateral lower lobe infiltrate greater on the right consistent with right lower lobe pneumonia. Infectious disease consult requested. Patient is less hypoxic today. Continues to have fever with T-Max of 101.5. Hemoglobin 9.0 today and surgery continues with conservative management and monitoring. Review of Systems Constitutional: Denied any fatigue. Reports fever. Cardio vascular: denied any chest pain, palpitations Gastrointestinal: denied any nausea, vomiting, diarrhea Pulmonary: Reports shortness of breath, no cough. Neurologic denied any new focal deficits All inpatient medications were reviewed and appropriate changes in these medications as dictated in the interval history and assessment and plan. PHYSICAL EXAMINATION: GENERAL: The patient is alert and oriented x3, not in any acute distress. Well developed, well nourished. HEENT: Pupils are round and equally reacting to light. EOMI. No scleral icterus. No conjunctival pallor. Normocephalic, atraumatic. No pharyngeal erythema. No thyromegaly. CARDIOVASCULAR: S1 and S2 present. No murmurs, rubs, or gallops. PULMONARY: Coarse lung sounds bilateral bases ABDOMEN: Soft, nontender, nondistended, normoactive bowel sounds. No palpable organomegaly. MUSCULOSKELETAL: No joint swelling or deformity. EXTREMITIES: No cyanosis, clubbing, or pedal edema. NEUROLOGICAL: Gross neurological examination did not reveal any focal deficits. SKIN: No rashes. Assessment Abdominal pain with findings of splenic hematoma and left paracolic gutter hemorrhage on imaging Anemia possibly acute blood loss Acute hypoxic respiratory failure likely due to basilar atelectasis / right lower lobe infiltrate consistent with community acquired pneumonia. Diabetes mellitus type 2 History of psoriatic arthritis History of migraines Remote history of DVT in her 22 depression GI prophylaxis DVT prophylaxis SCDs Full Code Plan Continue to monitor hemoglobin closely general surgery following patient may need exploratory laparotomy Continue empiric antibiotics and infectious disease consultation Continue supportive care Incentive spirometer recommended 10 x an hr while awake. Repeat CBC in a.m. The impression and plan of care has been dictated by Sapphire Augustine, Nurse Practitioner as directed. Dr. Nadir MD I have performed a history and physical examination and medical decision making of this patient, discussed the same with the dictator, and agree with the dictators assessment and plan as written, documented as a scribe. Based on total visit time, I have performed more than 50% of this visit. Objective - Vital Signs Vital signs: Vital Signs Temp 101.5 F H 05/09/23 07:52 Pulse 87 05/09/23 08:13 Resp 18 05/09/23 07:52 BP 109/57 05/09/23 07:52 Pulse Ox 94 L 05/09/23 08:05 FiO2 Intake & Output 05/08/23 05/09/23 05/09/23 18:59 06:59 18:59 Other: # Voids 2 2 - Labs CBC & Chem 7: 05/09/23 06:44 05/07/23 06:23 Labs: Abnormal Lab Results - Last 24 Hours (Table) 05/08/23 05/08/23 05/08/23 Range/Units 11:47 16:51 21:11 RBC (3.80-5.40) m/uL Hgb (11.4-16.0) gm/dL Hct (34.0-46.0) % POC Glucose (mg/dL) 129 H 129 H 146 H (70-110) mg/dL 05/09/23 05/09/23 Range/Units 06:14 06:44 RBC 2.95 L (3.80-5.40) m/uL Hgb 9.0 L (11.4-16.0) gm/dL Hct 27.5 L (34.0-46.0) % POC Glucose (mg/dL) 133 H (70-110) mg/dL Assessment and Plan Time with Patient: Less than 30
[2023-05-10] MEDS: PIPERACILLIN-TAZOBACTAM 3.375 GM in SODIUM CHLORIDE 0.9% 100 ML IVPB SCH ×3 (01:03→16:38)
[2023-05-10] MEDS: HYDROmorphone 0.5 MG/0.5 ML SYRINGE IVP PRN ×2 (01:09→06:16)
[2023-05-10 05:32] LABS: Glucose,Whole Blood 131 mg/dL (70-110)
[2023-05-10] MEDS: INSULIN ASPART (NovoLOG) 100 UNIT/ML VIAL SQ SCH ×4 (05:45→22:40)
[2023-05-10] MEDS: IPRATROPIUM-ALBUTEROL 3 ML NEB INHALATION SCH ×4 (07:34→21:01)
[2023-05-10] MEDS: HYDROmorphone 1 MG/ML 1 ML SYRINGE IVP PRN ×4 (08:38→20:41)
[2023-05-10] MEDS: PANTOPRAZOLE 40 MG TABLET PO SCH (09:12)
[2023-05-10] MEDS: LORATADINE 10 MG TAB PO SCH (09:12)
[2023-05-10] MEDS: busPIRone HCl 5 MG TAB PO SCH (09:12)
[2023-05-10] MEDS: DULoxetine HCL 60 MG CAPSULE.DR PO SCH (09:12)
[2023-05-10] MEDS: predniSONE 20 MG TAB PO SCH (09:12)
[2023-05-10] MEDS: FLUTICASONE 50MCG/SPRAY NASAL 16GM EA NOSTRIL SCH (09:13)
[2023-05-10 11:13] LABS: ALT 19 U/L (8-44); AST 24 U/L (13-35); Albumin 3.8 d/dL (3.8-4.9); Alkaline Phosphatase 58 U/L (41-126); BUN/Creat Ratio 12.17 Ratio (12.00-20.00); Blood Urea Nitrogen 7.3 mg/dL (9.0-27.0); Calcium 8.3 mg/dL (8.7-10.3); Carbon Dioxide 27.6 mmol/L (21.6-31.8); Chloride 104 mmol/L (96-109); Glucose 114 mg/dL (70-110); Potassium 4.2 mmol/L (3.5-5.5); Sodium 142 mmol/L (135-145); Total Bilirubin 0.6 mg/dL (0.3-1.2); Total Protein 5.8 d/dL (6.2-8.2)
[2023-05-10 12:02] LABS: Glucose,Whole Blood 166 mg/dL (70-110)
[2023-05-10 12:09] LABS: Basophils # (A) 0.03 X 10*3/uL (0.00-0.10); Basophils % (A) 0.4 %; Eosinophils # (A) 0.17 X 10*3/uL (0.04-0.35); Eosinophils % (A) 2.3 %; HCT 29.1 % (37.2-46.3); HGB 9.2 d/dL (12.0-15.0); Lymphocytes % (A) 23.3 %; MCH 29.7 pg (27.0-32.0); MCHC 31.6 d/dL (32.0-37.0); MCV 93.9 FL (80.0-97.0); Mean Platelet Volume 11.9 FL (9.5-12.2); Monocytes # (A) 0.98 X 10*3/uL (0.20-1.00); Monocytes % (A) 13.4 %; NRBC Per 100 WBC 0 X 10*3/uL (0.00-0.01); Neutrophils % (A) 60.2 %; Platelet Count 173 X 10*3/uL (140-440); RBC Morphology Normal (Normal); RDW 13.6 % (11.5-14.5); WBC 7.31 X 10*3/uL (4.50-10.00)
[2023-05-10] MEDS ORDERED: ERGOCALCIFEROL 1,250 MCG (50,000 IU) CAPSULE PO SCH (12:30)
--- NOTE | 2023-05-10 15:45 | P.PN ---
Subjective Progress Note Date: 05/10/23 Patient is evaluated today resting in bed, reports abdominal pain has improved from yesterday. Hemoglobin dropped to 9.9 down from 14 on admission. Patient is being followed closely by general surgery and monitoring patient may possibly need an exploratory laparotomy. Additionally patient continues to report shortness of breath and requiring 2 L of nasal cannula with hypoxia down into the 80-89% on room air this is an ongoing over the last 3 weeks per patient. She is also reporting a cough. Patient has evidence of infiltrate on her imaging patient will be started on empiric antibiotics for possible pneumonia. 05/09/2023 Patient is evaluated today sitting up at the bedside. Continues to report shortness of breath and requires 2L of oxygen. Feels the updrafts are helping. Covid is negative. Procalcitonin is normal. Had a follow up chest xray which shows bilateral lower lobe infiltrate greater on the right consistent with right lower lobe pneumonia. Infectious disease consult requested. Patient is less hypoxic today. Continues to have fever with T-Max of 101.5. Hemoglobin 9.0 today and surgery continues with conservative management and monitoring. 05/10/2023 Patient is evaluated today resting in bed. She hasn't weaned to room air with oxygen saturations of 96% true feels less short of breath. She continues on DuoNeb's 4 times a day. Chest x-ray which does show a right lower lobe pneumonia. ID is following and antibiotics have been adjusted to IV Zosyn. Patient does continue with low-grade fever. Patient will be monitored overnight and possibly discharge home tomorrow. Labs today show normal kidney function, sodium 142, potassium 4.2. CRP 8.80. Hemoglobin 9.2 Review of Systems Constitutional: Denied any fatigue. Reports fever. Cardio vascular: denied any chest pain, palpitations Gastrointestinal: denied any nausea, vomiting, diarrhea Pulmonary: Reports shortness of breath, no cough. Neurologic denied any new focal deficits All inpatient medications were reviewed and appropriate changes in these medications as dictated in the interval history and assessment and plan. PHYSICAL EXAMINATION: GENERAL: The patient is alert and oriented x3, not in any acute distress. Well developed, well nourished. HEENT: Pupils are round and equally reacting to light. EOMI. No scleral icterus. No conjunctival pallor. Normocephalic, atraumatic. No pharyngeal erythema. No thyromegaly. CARDIOVASCULAR: S1 and S2 present. No murmurs, rubs, or gallops. PULMONARY: Coarse lung sounds bilateral bases ABDOMEN: Soft, nontender, nondistended, normoactive bowel sounds. No palpable organomegaly. MUSCULOSKELETAL: No joint swelling or deformity. EXTREMITIES: No cyanosis, clubbing, or pedal edema. NEUROLOGICAL: Gross neurological examination did not reveal any focal deficits. SKIN: No rashes. Assessment Abdominal pain with findings of splenic hematoma and left paracolic gutter hemorrhage on imaging hemoglobin stable. Anemia possibly acute blood loss Acute hypoxic respiratory failure likely due to basilar atelectasis / right lower lobe infiltrate consistent with community acquired pneumonia. Diabetes mellitus type 2 History of psoriatic arthritis History of migraines Remote history of DVT in her 22 depression GI prophylaxis DVT prophylaxis SCDs Full Code Plan Continue to monitor hemoglobin closely general surgery following patient may need exploratory laparotomy if hemoglobin becomes unstable Continue empiric antibiotics and infectious disease consultation Continue supportive care Incentive spirometer recommended 10 x an hr while awake. The impression and plan of care has been dictated by Sapphire Augustine, Nurse Practitioner as directed. Dr. Nadir MD I have performed a history and physical examination and medical decision making of this patient, discussed the same with the dictator, and agree with the dictators assessment and plan as written, documented as a scribe. Based on total visit time, I have performed more than 50% of this visit. Objective - Vital Signs Vital signs: Vital Signs Temp 99.9 F H 05/10/23 07:47 Pulse 76 05/10/23 07:47 Resp 19 05/10/23 07:47 BP 99/51 05/10/23 07:47 Pulse Ox 95 05/10/23 07:47 FiO2 Intake & Output 05/09/23 05/10/23 05/10/23 18:59 06:59 18:59 Other: # Voids 3 - Labs CBC & Chem 7: 05/10/23 05:30 05/10/23 05:30 Labs: Abnormal Lab Results - Last 24 Hours (Table) 05/09/23 05/09/23 05/09/23 Range/Units 06:44 11:58 17:09 POC Glucose (mg/dL) 157 H 121 H (70-110) mg/dL Hemoglobin A1c 6.5 H (<=6.0) % 08/22/23 08/23/23 Range/Units 19:49 05:31 POC Glucose (mg/dL) 124 H 131 H (70-110) mg/dL Hemoglobin A1c (<=6.0) %
--- NOTE | 2023-05-10 16:32 | P.PN ---
Subjective Progress Note Date: 05/10/23 CHIEF COMPLAINT: Splenic hematoma HISTORY OF PRESENT ILLNESS: Patient reports reports that the abdominal pain continues to improve. She denies any nausea or vomiting. Tolerating full liquid diet. Low grade temps of 99 this morning. Hemoglobin stable. Has gone up slightly from 9.0-9.2. Chest x-ray suspect right lower lobe pneumonia. Infectious disease started antibiotics. PHYSICAL EXAM: VITAL SIGNS: Reviewed. GENERAL: Well-developed in no acute distress. ABDOMEN: Soft. Nondistended. Tenderness with palpation in the left upper quadrant epigastric and right upper quadrant NEUROLOGIC: Alert and oriented. Cranial nerves II through XII grossly intact. ASSESSMENT: 1. Spontaneous splenic hematoma PLAN: -Continue to monitor -Continue full liquid diet -Repeat CBC in a.m. -Continue pain management -Encouraged patient to use incentive spirometer -No plans repeat CT of abdomen at this time Physician Shoveler note has been reviewed by physician. Signing provider agrees with the documented findings, assessment, and plan of care. Objective - Vital Signs Vital signs: Vital Signs Temp 99.9 F H 05/10/23 07:47 Pulse 78 05/10/23 14:41 Resp 19 05/10/23 07:47 BP 99/51 05/10/23 07:47 Pulse Ox 95 05/10/23 07:47 FiO2 Intake & Output 05/09/23 05/10/23 05/10/23 18:59 06:59 18:59 Other: # Voids 3 - Labs CBC & Chem 7: 05/10/23 05:30 05/10/23 05:30 Labs: Abnormal Lab Results - Last 24 Hours (Table) 05/09/23 05/09/23 05/10/23 Range/Units 17:09 19:49 05:30 RBC 3.10 L (4.10-5.20) X 10*6/uL Hgb 9.2 L (12.0-15.0) d/dL Hct 29.1 L (37.2-46.3) % MCHC 31.6 L (32.0-37.0) d/dL BUN (9.0-27.0) mg/dL Glucose (70-110) mg/dL POC Glucose (mg/dL) 121 H 124 H (70-110) mg/dL Calcium (8.7-10.3) mg/dL C-Reactive Protein (0.00-0.80) mg/dL Total Protein (6.2-8.2) d/dL 05/10/23 05/10/23 05/10/23 Range/Units 05:30 05:31 12:00 RBC (4.10-5.20) X 10*6/uL Hgb (12.0-15.0) d/dL Hct (37.2-46.3) % MCHC (32.0-37.0) d/dL BUN 7.3 L (9.0-27.0) mg/dL Glucose 114 H (70-110) mg/dL POC Glucose (mg/dL) 131 H 166 H (70-110) mg/dL Calcium 8.3 L (8.7-10.3) mg/dL C-Reactive Protein 8.80 H (0.00-0.80) mg/dL Total Protein 5.8 L (6.2-8.2) d/dL
[2023-05-10] MEDS: SODIUM CHLORIDE 0.9% 1,000 ML IV SCH ×2 (16:39→20:35)
[2023-05-10 16:59] LABS: Glucose,Whole Blood 236 mg/dL (70-110)
[2023-05-10] MEDS: MIRTAZAPINE 15 MG TAB PO SCH (20:39)
[2023-05-10] MEDS: busPIRone HCl 10 MG TAB PO SCH (20:39)
[2023-05-10 20:43] LABS: Glucose,Whole Blood 186 mg/dL (70-110)
[2023-05-10] MEDS: CYCLOBENZAPRINE 5 MG TAB PO PRN (22:40)
[2023-05-11] MEDS: PIPERACILLIN-TAZOBACTAM 3.375 GM in SODIUM CHLORIDE 0.9% 100 ML IVPB SCH ×3 (00:30→16:14)
[2023-05-11 04:37] LABS: HGB 9.4 gm/dL (11.4-16.0); MCH 30.8 pg (25.0-35.0); MCHC 33.5 g/dL (31.0-37.0); MCV 91.8 fL (80.0-100.0); Mean Platelet Volume 8.5; Platelet Count 188 k/uL (150-450); RBC 3.05 m/uL (3.80-5.40); RDW 14.1 % (11.5-15.5)
[2023-05-11 06:05] LABS: Glucose,Whole Blood 126 mg/dL (70-110)
[2023-05-11] MEDS: INSULIN ASPART (NovoLOG) 100 UNIT/ML VIAL SQ SCH ×4 (06:26→21:36)
[2023-05-11] MEDS: PANTOPRAZOLE 40 MG TABLET PO SCH (06:30)
[2023-05-11] MEDS: HYDROmorphone 0.5 MG/0.5 ML SYRINGE IVP PRN (06:30)
[2023-05-11] MEDS: IPRATROPIUM-ALBUTEROL 3 ML NEB INHALATION SCH ×4 (08:29→21:28)
[2023-05-11] MEDS: busPIRone HCl 5 MG TAB PO SCH (09:10)
[2023-05-11] MEDS: DULoxetine HCL 60 MG CAPSULE.DR PO SCH (09:10)
[2023-05-11] MEDS: LORATADINE 10 MG TAB PO SCH (09:11)
[2023-05-11] MEDS: HYDROcodone/APAP 5-325MG 1 EACH TAB PO PRN ×2 (09:11→18:52)
[2023-05-11] MEDS: FLUTICASONE 50MCG/SPRAY NASAL 16GM EA NOSTRIL SCH (09:13)
[2023-05-11] MEDS: predniSONE 20 MG TAB PO SCH (09:15)
[2023-05-11 11:30] LABS: Glucose,Whole Blood 182 mg/dL (70-110)
[2023-05-11] MEDS ORDERED: IOPAMIDOL CONTRAST (ORAL USE) VIAL PO PRN ×2 (12:10→15:49)
[2023-05-11 12:52] LABS: ALT 17 U/L (4-34); AST 20 U/L (14-36); African American GFR (CKD) >90 (>60 ml/min/1.73 sqM); Albumin 3.2 g/dL (3.5-5.0); Albumin/Globulin Ratio 1.2; Alkaline Phosphatase 56 U/L (38-126); Anion Gap 5 mmol/L; Blood Urea Nitrogen 10 mg/dL (7-17); Calcium 8.3 mg/dL (8.4-10.2); Carbon Dioxide 30 mmol/L (22-30); Chloride 104 mmol/L (98-107); Globulin 2.7 g/dL; Glucose 120 mg/dL (74-99); Non-African American GFR(CKD) >90 (>60 ml/min/1.73 sqM); Potassium 3.8 mmol/L (3.5-5.1); Sodium 139 mmol/L (137-145); Total Bilirubin 0.6 mg/dL (0.2-1.3); Total Protein 5.9 g/dL (6.3-8.2)
--- NOTE | 2023-05-11 15:23 | P.PN ---
Subjective Progress Note Date: 05/10/23 Principal diagnosis: Fever Patient is a 62-year-old female with a past medical history significant for diabetes mellitus psoriatic arthritis patient lives in [place] and she came to the [place] area to participate in the [facility] float down patient mention she did pack herself and got here, Monday morning around 3 she started having a pain to the upper abdominal area, CT of abdominal pelvis which did shows moderate-sized subcapsular splenic hematoma no convincing evidence of active extravasation small amount of complex fluid within the left paracolic gutter likely presenting hemorrhage on today's evaluation that is 05/10/2020 the patient did have a low-grade fever of 99.9F this morning the patient is afebrile since then, the patient is breathing comfortably on 3 L nasal cannula oxygen patient denies having any chest pain or shortness with occasional cough no nausea no vomiting and left- sided abdominal pain has decreased in intensity Patient white count is 7.31 hemoglobin is 9.2 crit 0.6 liver enzymes are normal, call testing negative blood cultures pending Objective - Vital Signs Vital signs: Vital Signs Temp 99.9 F H 05/10/23 07:47 Pulse 78 05/10/23 14:41 Resp 19 05/10/23 07:47 BP 99/51 05/10/23 07:47 Pulse Ox 95 05/10/23 07:47 FiO2 Intake & Output 05/09/23 05/10/23 05/10/23 18:59 06:59 18:59 Other: # Voids 3 - Exam GENERAL DESCRIPTION: An middle-aged female lying in bed in no distress RESPIRATORY SYSTEM: Unlabored breathing , decreased breath sounds at bases HEART: S1 S2 regular rate and rhythm , ABDOMEN: Soft , no tenderness EXTREMITIES: No edema feet - Labs CBC & Chem 7: 05/11/23 04:17 05/11/23 04:17 Labs: Abnormal Lab Results - Last 24 Hours (Table) 05/09/23 05/09/23 05/10/23 Range/Units 17:09 19:49 05:30 RBC 3.10 L (4.10-5.20) X 10*6/uL Hgb 9.2 L (12.0-15.0) d/dL Hct 29.1 L (37.2-46.3) % MCHC 31.6 L (32.0-37.0) d/dL BUN (9.0-27.0) mg/dL Glucose (70-110) mg/dL POC Glucose (mg/dL) 121 H 124 H (70-110) mg/dL Calcium (8.7-10.3) mg/dL C-Reactive Protein (0.00-0.80) mg/dL Total Protein (6.2-8.2) d/dL 05/10/23 05/10/23 05/10/23 Range/Units 05:30 05:31 12:00 RBC (4.10-5.20) X 10*6/uL Hgb (12.0-15.0) d/dL Hct (37.2-46.3) % MCHC (32.0-37.0) d/dL BUN 7.3 L (9.0-27.0) mg/dL Glucose 114 H (70-110) mg/dL POC Glucose (mg/dL) 131 H 166 H (70-110) mg/dL Calcium 8.3 L (8.7-10.3) mg/dL C-Reactive Protein 8.80 H (0.00-0.80) mg/dL Total Protein 5.8 L (6.2-8.2) d/dL 05/10/23 Range/Units 16:57 RBC (4.10-5.20) X 10*6/uL Hgb (12.0-15.0) d/dL Hct (37.2-46.3) % MCHC (32.0-37.0) d/dL BUN (9.0-27.0) mg/dL Glucose (70-110) mg/dL POC Glucose (mg/dL) 236 H (70-110) mg/dL Calcium (8.7-10.3) mg/dL C-Reactive Protein (0.00-0.80) mg/dL Total Protein (6.2-8.2) d/dL Assessment and Plan (1) Fever Current Visit: Yes Status: Acute Code(s): R50.9 - FEVER, UNSPECIFIED SNOMED Code(s): 779958576 Plan: 1patient with a fever in this patient present to hospital abdominal pain and has been diagnosed with the splenic subcapsular hematoma in the last evidence of some free fluid in the left paracolic gutter concerning for hemorrhage patient also noticed to have a drop in her hemoglobin and high clinical suspicious for hemorrhage to be the etiology of this a low-grade fever as a CT abdominal pelvis did not show evidence of colitis or abscess CT angiogram was negative for any pneumonia and the patient did have a normal procalcitonin. 2patient did have a improvement in her fever and we will continue the patient on Zosyn to better cover for any intra-abdominal pathogen keeping in mind there is some evidence of left paracolic fluid possible hemorrhage 3 patient will benefit from repeat CT of abdominal pelvis. to make sure no evidence of any worsening hematoma or continuous leak keeping in mind drop in the hemoglobin that may need surgery Dictation was produced using Palm dictation software. please excuse any gramm atical, word or spelling errors. Time with Patient: Less than 30
--- NOTE | 2023-05-11 15:26 | P.PN ---
Subjective Progress Note Date: 05/11/23 Principal diagnosis: Fever Patient is a 62-year-old female with a past medical history significant for diabetes mellitus psoriatic arthritis patient lives in [place] and she came to the [place] area to participate in the [facility] float down patient mention she did pack herself and got here, Monday morning around 3 she started having a pain to the upper abdominal area, CT of abdominal pelvis which did shows moderate-sized subcapsular splenic hematoma no convincing evidence of active extravasation small amount of complex fluid within the left paracolic gutter likely presenting hemorrhage on today's evaluation that is 05/11/2023, patient did have overall improvement in her fever pattern with a refill of 99.44 this morning the patient is splinting comfortably still requiring supplemental oxygen currently on 2 L nasal cannula oxygen, patient is feeling better though denies any chest pain no significant cough. Abdominal pain has improved no nausea no vomiting no diarrhea. Patient hemoglobin is 9.4 which is stable white count of 9.0 creatinine 0.49 blood cultures are pending so far chest x-ray done on 05/09/2023 suspicious for right lower lobe pneumonia Objective - Vital Signs Vital signs: Vital Signs Temp 99.1 F 05/11/23 07:09 Pulse 75 05/11/23 12:21 Resp 17 05/11/23 07:09 BP 114/68 05/11/23 07:09 Pulse Ox 92 L 05/11/23 07:09 FiO2 Intake & Output 05/10/23 05/11/23 05/11/23 18:59 06:59 18:59 Intake Total 1000 Balance 1000 Intake: Intake, IV Titration 1000 Amount Piperacillin-Tazobactam 3 100 .375 gm In Sodium Chloride 0.9% 100 ml @ 25 mls/hr IVPB Q8HR [facility] Rx# :[id number] Sodium Chloride 0.9% 1, 900 000 ml @ 75 mls/hr IV . [id number] SON[facility]O Rx#:[id number] Other: # Voids 3 - Exam GENERAL DESCRIPTION: An middle-aged female lying in bed in no distress RESPIRATORY SYSTEM: Unlabored breathing , decreased breath sounds at bases HEART: S1 S2 regular rate and rhythm , ABDOMEN: Soft , no tenderness EXTREMITIES: No edema feet - Labs CBC & Chem 7: 05/11/23 04:17 05/11/23 04:17 Labs: Abnormal Lab Results - Last 24 Hours (Table) 05/10/23 05/10/23 05/11/23 Range/Units 16:57 20:42 04:17 RBC 3.05 L (3.80-5.40) m/uL Hgb 9.4 L (11.4-16.0) gm/dL Hct 28.0 L (34.0-46.0) % Creatinine (0.52-1.04) mg/dL Glucose (74-99) mg/dL POC Glucose (mg/dL) 236 H 186 H (70-110) mg/dL Calcium (8.4-10.2) mg/dL Total Protein (6.3-8.2) g/dL Albumin (3.5-5.0) g/dL 05/11/23 05/11/23 05/11/23 Range/Units 04:17 06:04 11:29 RBC (3.80-5.40) m/uL Hgb (11.4-16.0) gm/dL Hct (34.0-46.0) % Creatinine 0.49 L (0.52-1.04) mg/dL Glucose 120 H (74-99) mg/dL POC Glucose (mg/dL) 126 H 182 H (70-110) mg/dL Calcium 8.3 L (8.4-10.2) mg/dL Total Protein 5.9 L (6.3-8.2) g/dL Albumin 3.2 L (3.5-5.0) g/dL Microbiology - Last 24 Hours (Table) 05/10/23 05:30 Blood Culture - Preliminary Blood Assessment and Plan (1) Right lower lobe pneumonia Current Visit: Yes Status: Acute Code(s): J18.9 - PNEUMONIA, UNSPECIFIED ORGANISM SNOMED Code(s): 814072285 (2) Fever Current Visit: Yes Status: Acute Code(s): R50.9 - FEVER, UNSPECIFIED SNOMED Code(s): 539196644 Plan: 1patient with a fever in this patient present to hospital abdominal pain and has been diagnosed with the splenic subcapsular hematoma in the last evidence of some free fluid in the left paracolic gutter concerning for hemorrhage patient a lso noticed to have a drop in her hemoglobin and high clinical suspicious for hemorrhage to be the etiology of this a low-grade fever as a CT abdominal pelvis did not show evidence of colitis or abscess CT angiogram was negative for any pneumonia and the patient did have a normal procalcitonin. 2patient did have a improvement in her fever, white count is normal, cultures so far negative we will continue the patient on Zosyn 3 patient will benefit from repeat CT of abdominal pelvis keeping in mind there is some evidence of left paracolic fluid possible hemorrhage, as initial CT was done without contrast this was discussed with the medical team CT has been ordered Dictation was produced using Verid dictation software. please excuse any grammatical, word or spelling errors. Time with Patient: Less than 30
[2023-05-11] MEDS: SODIUM CHLORIDE 0.9% 1,000 ML IV SCH ×2 (16:26→21:40)
--- NOTE | 2023-05-11 16:55 | CT ---
EXAMINATION TYPE: CT abdomen pelvis w con CT DLP: 1619.7 mGycm, Automated exposure control for dose reduction was used. DATE OF EXAM: 05/11/2023 4:42 PM COMPARISON: CT abdomen pelvis most recent from 05/07/2023. CLINICAL INDICATION:Female, 62 years old with history of follow up splenic hematoma; f/u splenic harvey tabitha TECHNIQUE: Standard CT of the abdomen and pelvis following the administration of 100 cc of Isovue 3 00 IV contrast material and oral contrast. Coronal and sagittal reformats were performed. FINDINGS: LOWER CHEST: Bibasilar linear atelectasis. Trace left pleural effusion. ABDOMEN LIVER: Right hepatic lobe 1.5 cm hypodense lesion likely representing a hemangioma. There is some per ipheral nodular enhancement identified. Additional couple subcentimeter hypodense foci within the dev er which are too small to accurately characterize. GALLBLADDER AND BILE DUCTS: Unremarkable. PANCREAS: Unremarkable. SPLEEN: Increased size of heterogenous lesion hyperattenuating subcapsular collection measuring gross ly 10.4 x 3.4 cm, previously measured 1.4 x 1.8 cm. There are linear hypodense regions within the spl een suggesting lacerations measuring up to 4.4 cm. No obvious active extravasation at this time. Sple en appears primarily fairly vascularized. ADRENAL GLANDS: Unremarkable. KIDNEYS AND URETERS: No evidence of hydronephrosis or renal calculus. The kidneys enhance symmetrical ly. Subcentimeter hypodense focus within the which is too small characterize but likely represents a cyst. PELVIS BLADDER: Unremarkable REPRODUCTIVE: Unremarkable. ABDOMEN & PELVIS STOMACH AND BOWEL: Stomach and duodenum are unremarkable. No focal wall thickening or surrounding inf lammatory changes. Enteric contrast reaches the ascending colon. Distal colonic diverticulosis withou t evidence for acute diverticulitis. No evidence of bowel obstruction. PERITONEUM: No evidence of pneumoperitoneum. Similar small amount of complex fluid demonstrated withi n the pelvis. VASCULATURE: No evidence of aortic aneurysm. Few pelvic phleboliths. MUSCULOSKELETAL: No acute osseous abnormalities LYMPH NODES: No gross evidence for lymphadenopathy. SOFT TISSUE/ABDOMINAL WALL: Small fat filled umbilical hernia. IMPRESSION: 1. Increased size of subcapsular splenic hemorrhage from prior examination. Grade 3. Linear regions within the spleen suggesting lacerations. No obvious active extravasation at this time. Surgery consu ltation is recommended. 2. Similar small amount of complex fluid within the pelvis related to hemorrhage.
[2023-05-11 16:57] LABS: Glucose,Whole Blood 219 mg/dL (70-110)
--- NOTE | 2023-05-11 16:57 | P.PN ---
Subjective Progress Note Date: 05/11/23 CHIEF COMPLAINT: Splenic hematoma HISTORY OF PRESENT ILLNESS: Patient reports reports that the abdominal pain continues to improve. She denies any nausea or vomiting. Patient is tolerating diet. Afebrile. Medicine service has consulted pulmonary service for hypoxia and pneumonia. They've also ordered chest x-ray and computed tomography scan abdomen. Hemoglobin stable at 9.4 PHYSICAL EXAM: VITAL SIGNS: Reviewed. GENERAL: Well-developed in no acute distress. ABDOMEN: Soft. Nondistended. mild Tenderness with palpation in the left upper quadrant epigastric and right upper quadrant NEUROLOGIC: Alert and oriented. Cranial nerves II through XII grossly intact. ASSESSMENT: 1. Spontaneous splenic hematoma PLAN: -Transfer service to medicine -Advance diet to regular -Follow up on computed tomography scan abdomen and pelvis ordered by medicines -Continue pain management. Added [place] for oral pain medication -Encouraged patient to use incentive spirometer Physician Gas Operations Analyst note has been reviewed by physician. Signing provider agrees with the documented findings, assessment, and plan of care. Objective - Vital Signs Vital signs: Vital Signs Temp 99.4 F 05/11/23 13:20 Pulse 88 05/11/23 13:20 Resp 18 05/11/23 13:20 BP 122/64 05/11/23 13:20 Pulse Ox 90 L 05/11/23 13:20 FiO2 Intake & Output 05/10/23 05/11/23 05/11/23 18:59 06:59 18:59 Intake Total 1000 Balance 1000 Intake: Intake, IV Titration 1000 Amount Piperacillin-Tazobactam 3 100 .375 gm In Sodium Chloride 0.9% 100 ml @ 25 mls/hr IVPB Q8HR [facility] Rx# :[id number] Sodium Chloride 0.9% 1, 900 000 ml @ 75 mls/hr IV . [id number] [facility] Rx#:[id number] Other: # Voids 3 - Labs CBC & Chem 7: 05/11/23 04:17 05/11/23 04:17 Labs: Abnormal Lab Results - Last 24 Hours (Table) 05/10/23 05/10/23 05/11/23 Range/Units 16:57 20:42 04:17 RBC 3.05 L (3.80-5.40) m/uL Hgb 9.4 L (11.4-16.0) gm/dL Hct 28.0 L (34.0-46.0) % Creatinine (0.52-1.04) mg/dL Glucose (74-99) mg/dL POC Glucose (mg/dL) 236 H 186 H (70-110) mg/dL Calcium (8.4-10.2) mg/dL Total Protein (6.3-8.2) g/dL Albumin (3.5-5.0) g/dL 05/11/23 05/11/23 05/11/23 Range/Units 04:17 06:04 11:29 RBC (3.80-5.40) m/uL Hgb (11.4-16.0) gm/dL Hct (34.0-46.0) % Creatinine 0.49 L (0.52-1.04) mg/dL Glucose 120 H (74-99) mg/dL POC Glucose (mg/dL) 126 H 182 H (70-110) mg/dL Calcium 8.3 L (8.4-10.2) mg/dL Total Protein 5.9 L (6.3-8.2) g/dL Albumin 3.2 L (3.5-5.0) g/dL Microbiology - Last 24 Hours (Table) 05/10/23 05:30 Blood Culture - Preliminary Blood
--- NOTE | 2023-05-11 16:57 | XR ---
EXAMINATION: XR chest 2V: 05/11/2023 4:44 PM CLINICAL INDICATION: short of breath, hypoxia TECHNIQUE: Departmental protocol COMPARISON: 05/09/2023 FINDINGS: There is improved right basilar inflation since the prior study, consistent with resolving atelectasi s. There remains a right peribronchial ill-defined added opacity, suspicious for right lower lobe bro nchopneumonia. Recommend six-week follow-up PA and lateral chest radiograph to prove resolution of th e findings. The lungs are otherwise clear. Elevated right hemidiaphragm redemonstrated. The pleural spaces are negative. The cardiac silhouette appears borderline enlarged. The remainder of the mediastinal silhouette is un remarkable. The skeletal structures and soft tissues are negative for acute findings. IMPRESSION: Interval improvement in the overall lung inflation pattern, as discussed.
--- NOTE | 2023-05-11 19:49 | P.PN ---
Subjective Progress Note Date: 05/11/23 Patient is evaluated today resting in bed, reports abdominal pain has improved from yesterday. Hemoglobin dropped to 9.9 down from 14 on admission. Patient is being followed closely by general surgery and monitoring patient may possibly need an exploratory laparotomy. Additionally patient continues to report shortness of breath and requiring 2 L of nasal cannula with hypoxia down into the 80-89% on room air this is an ongoing over the last 3 weeks per patient. She is also reporting a cough. Patient has evidence of infiltrate on her imaging patient will be started on empiric antibiotics for possible pneumonia. 05/09/2023 Patient is evaluated today sitting up at the bedside. Continues to report shortness of breath and requires 2L of oxygen. Feels the updrafts are helping. Covid is negative. Procalcitonin is normal. Had a follow up chest xray which shows bilateral lower lobe infiltrate greater on the right consistent with right lower lobe pneumonia. Infectious disease consult requested. Patient is less hypoxic today. Continues to have fever with T-Max of 101.5. Hemoglobin 9.0 today and surgery continues with conservative management and monitoring. 05/10/2023 Patient is evaluated today resting in bed. She hasn't weaned to room air with oxygen saturations of 96% true feels less short of breath. She continues on DuoNeb's 4 times a day. Chest x-ray which does show a right lower lobe pneumonia. ID is following and antibiotics have been adjusted to IV Zosyn. Patient does continue with low-grade fever. Patient will be monitored overnight and possibly discharge home tomorrow. Labs today show normal kidney function, sodium 142, potassium 4.2. CRP 8.80. Hemoglobin 9.2 05/11/2023 Patient evaluated today resting in bed. Patient remains on 2 to 3 L of oxygen and is hypoxic with saturations of 88%. General surgery recommending discharge and O.P follow up. Patient not medically clear for discharge and recommending further work up and evaluation for the hypoxia as patient has no history of COPD and no other indications for the hypoxia.Patient Had f/u chest xray today showin g interval improvement in the overall lung inflation pattern. ID requesting follow up abdominal pelvis CT with contrast which reveals increased size of subcapsular splenic hemorrhage from prior examination. Grade 3. Linear regions within the spleen suggesting lacerations. No obvious active extravasation at this time. Surgery consultation is recommended. Similar amount of complex fluid within the pelvis related to hemorrhage. Patient remains on IV zosyn, PO steroids and updraft treatments. Hemoglobin remains stable at 9.4. White count normal at 9.0. Patient has normal kidney function. Review of Systems Constitutional: Denied any fatigue. Reports fever. Cardio vascular: denied any chest pain, palpitations Gastrointestinal: denied any nausea, vomiting, diarrhea, Has mild dull abominal pain; improving. Pulmonary: Reports shortness of breath, no cough. Neurologic denied any new focal deficits All inpatient medications were reviewed and appropriate changes in these medications as dictated in the interval history and assessment and plan. PHYSICAL EXAMINATION: GENERAL: The patient is alert and oriented x3, not in any acute distress. Well developed, well nourished. HEENT: Pupils are round and equally reacting to light. EOMI. No scleral icterus. No conjunctival pallor. Normocephalic, atraumatic. No pharyngeal erythema. No thyromegaly. CARDIOVASCULAR: S1 and S2 present. No murmurs, rubs, or gallops. PULMONARY: Coarse lung sounds bilateral bases, improved aeration. ABDOMEN: Soft, Mild tenderness, nondistended, normoactive bowel sounds. No palpable organomegaly. MUSCULOSKELETAL: No joint swelling or deformity. EXTREMITIES: No cyanosis, clubbing, or pedal edema. NEUROLOGICAL: Gross neurological examination did not reveal any focal deficits. SKIN: No rashes. Assessment Abdominal pain with findings of splenic hematoma and left paracolic gutter hemorrhage on imaging hemoglobin stable. Anemia possibly acute blood loss Acute hypoxic respiratory failure likely due to basilar atelectasis / right lower lobe infiltrate consistent with community acquired pneumonia. Diabetes mellitus type 2 History of psoriatic arthritis History of migraines Remote history of DVT in her 20s Elevated Ddimer, CTA ruled out pulmonary embolism. depression GI prophylaxis DVT prophylaxis SCDs Full Code Plan General surgery recommending discharge and O.P follow up Patient needs further work up and monitoring for the hypoxia failed home oxygen test and pulmonary was consulted, patient has been started on pulmicort. Continue to monitor hemoglobin closely general surgery following patient may need exploratory laparotomy if hemoglobin becomes unstable Continue empiric antibiotics and infectious disease consultation Pending blood cultures Incentive spirometer recommended 10 x an hr while awake. Patient remains on oral prednisone, updrafts and has been started on pulmicort. Medicine has taken over primary service for this patient. The impression and plan of care has been dictated by [place] Nurse Practitioner as directed. Dr. Nadir MD I have performed a history and physical examination and medical decision making of this patient, discussed the same with the dictator, and agree with the dictators assessment and plan as written, documented as a scribe. Based on total visit time, I have performed more than 50% of this visit. Objective - Vital Signs Vital signs: Vital Signs Temp 99.4 F 05/11/23 13:20 Pulse 88 05/11/23 13:20 Resp 18 05/11/23 13:20 BP 122/64 05/11/23 13:20 Pulse Ox 90 L 05/11/23 13:20 FiO2 Intake & Output 05/11/23 05/11/23 05/12/23 06:59 18:59 06:59 Intake Total 1100 Balance 1100 Intake: Intake, IV Titration 1100 Amount Piperacillin-Tazobactam 3 200 .375 gm In Sodium Chloride 0.9% 100 ml @ 25 mls/hr IVPB Q8HR [facility] Rx# :[id number] Sodium Chloride 0.9% 1, 900 000 ml @ 75 mls/hr IV . [id number] [facility] Rx#:[id number] Other: # Voids 3 - Labs CBC & Chem 7: 05/11/23 04:17 05/11/23 04:17 Labs: Abnormal Lab Results - Last 24 Hours (Table) 05/10/23 05/11/23 05/11/23 Range/Units 20:42 04:17 04:17 RBC 3.05 L (3.80-5.40) m/uL Hgb 9.4 L (11.4-16.0) gm/dL Hct 28.0 L (34.0-46.0) % Creatinine 0.49 L (0.52-1.04) mg/dL Glucose 120 H (74-99) mg/dL POC Glucose (mg/dL) 186 H (70-110) mg/dL Calcium 8.3 L (8.4-10.2) mg/dL Total Protein 5.9 L (6.3-8.2) g/dL Albumin 3.2 L (3.5-5.0) g/dL 05/11/23 05/11/23 05/11/23 Range/Units 06:04 11:29 16:56 RBC (3.80-5.40) m/uL Hgb (11.4-16.0) gm/dL Hct (34.0-46.0) % Creatinine (0.52-1.04) mg/dL Glucose (74-99) mg/dL POC Glucose (mg/dL) 126 H 182 H 219 H (70-110) mg/dL Calcium (8.4-10.2) mg/dL Total Protein (6.3-8.2) g/dL Albumin (3.5-5.0) g/dL Microbiology - Last 24 Hours (Table) 05/10/23 05:30 Blood Culture - Preliminary Blood Assessment and Plan Time with Patient: Less than 30
[2023-05-11] MEDS: HYDROmorphone 1 MG/ML 1 ML SYRINGE IVP PRN (20:08)
--- NOTE | 2023-05-11 20:47 | P.CNPUL ---
History of Present Illness Consult date: 05/11/23 Reason for consult: pneumonia History of present illness: I was asked to evaluate this patient regarding any pneumonia. She is 8-year-old female patient who came in today burst above and because of abdominal pain. She woke up and she was having epigastric pain radiating to her back. She has also some nausea and emesis. Denies having any trauma to her abdomen. No history of fall. She does not take any form of anticoagulation. She came into the emergency and the computed tomography scan of the chest that was done with a CT angiogram protocol that showed no evidence of any pulmonary embolism and it showed subsegmental atelectasis. CAT scan of the abdomen and pelvis showed a moderate size some capsular splenic hematoma. There was small amount of complex fluid in the left paracolic gutter and pelvis likely representing a hemorrhage. There was also a hemangioma within the right liver. Accordingly, the patient was hospitalized. Neurosurgery consultation has been obtained. She did encounter an acute anemia and that he should hemoglobin was at 14 and a drop down to 9.4. She has not received any blood transfusions. She is also known to have diabetes mellitus type 2, migraines, thoracic arthritis, remote history of DVT and history of depression. She also encountered acute hypoxic respiratory failure and currently she is on 2 L of oxygen nasal cannula with a pulse ox of 90%. Her pro calcitonin level was normal. A repeat chest x-ray showed some atelectatic changes in the lung bases bilaterally and there was also a consultation for right lower lobe pneumonia. The patient was covered with IV Zosyn and she continued to have low-grade fever. No significant sputum production. Most recent white cell count is at 9 with a hemoglobin of 9.4. BUN is at 10 with a creatinine of 0.4 and sodium level is at 139. In summary, the patient is SPLENIC hematoma. She has been tolerating diet well. Hemoglobin has remained stable over the past 24-48 hours. Review of Systems Constitutional: Reports as per HPI Eyes: denies as per HPI, denies blurred vision, denies bulging eye, denies decreased vision, denies diplopia, denies discharge, denies dry eye, denies irritation, denies itching, denies pain, denies photophobia, denies loss of peripheral vision, denies loss of vision, denies tunnel vision/blind spots Ears: deny: decreased hearing, ear discharge, earache, tinnitus Ears, nose, mouth and throat: Reports as per HPI Breasts: absent: as per HPI, change in shape, gynecomastia, masses, nipple discharge, pain, skin changes, swelling Cardiovascular: Reports dyspnea on exertion Respiratory: Reports as per HPI, Reports dyspnea Gastrointestinal: Reports abdominal pain, Reports nausea, Reports vomiting Genitourinary: Reports as per HPI Menstruation: Reports as per HPI Musculoskeletal: Reports as per HPI Musculoskeletal: absent: ankle pain, ankle stiffness, ankle swelling Integumentary: Reports as per HPI Neurological: Reports as per HPI Psychiatric: Reports as per HPI Endocrine: Reports as per HPI Hematologic/Lymphatic: Reports as per HPI Allergic/Immunologic: Reports as per HPI Past Medical History Past Medical History: Diabetes Mellitus Additional Past Medical History / Comment(s): Psoriatic arthritis, migraines with botox every 3 months, reports had a blood clot in her 20s after cutting her leg (Right) History of Any Multi-Drug Resistant Organisms: None Reported Past Surgical History: No Surgical Hx Reported Past Anesthesia/Blood Transfusion Reactions: No Reported Reaction Smoking Status: Never smoker Past Alcohol Use History: None Reported Past Drug Use History: None Reported - Past Family History Mother Family Medical History: Cancer Additional Family Medical History / Comment(s): ovarian cancer Medications and Allergies Home Medications Medication Instructions Recorded Confirmed Type Cyclobenzaprine [Flexeril] 5 mg PO BID PRN 05/07/23 05/07/23 History DULoxetine HCL [Cymbalta] 120 mg PO DAILY 05/07/23 05/07/23 History Ergocalciferol [Vitamin D2 (1250 1,250 mcg PO WE 05/07/23 05/07/23 History Mcg = 56353 Iu)] HYDROcodone/APAP 10-325MG [[place] 1 tab PO Q6H PRN 05/07/23 05/07/23 History 10-325] Mirtazapine [Remeron] 30 mg PO HS 05/07/23 05/07/23 History busPIRone HCL 15 mg PO DAILY 05/07/23 05/07/23 History busPIRone HCL 30 mg PO HS 05/07/23 05/07/23 History metHOTREXate sodium [Methotrexate] 7.5 mg PO WE 05/07/23 05/07/23 History Acetaminophen Tab [Tylenol] 650 mg PO Q6HR PRN tab 05/11/23 Rx Albuterol Inhaler [Ventolin Hfa 2 puff INHALATION Q6H PRN 30 Days 05/11/23 Rx Inhaler] #1 each Amoxic-Pot Clav 875-125Mg 1 tab PO Q12HR 7 Days #14 tab 05/11/23 Rx [Augmentin 875-125] Benzocaine/Menthol Lozeng [Cepacol 1 each MUCOUS MEM Q4HR PRN lozenge 05/11/23 Rx lozenge] Budesonide-Formot 160-4.5 Mcg 2 puff INHALATION BID 30 Days 05/11/23 Rx [Symbicort 160-4.5 Mcg Inhaler] #10.2 gm Fluticasone Nasal [place] [Flonase 2 spray EA NOSTRIL DAILY #7 ml 05/11/23 Rx Nasal [place]] Loratadine [Claritin] 5 mg PO DAILY #30 tab 05/11/23 Rx predniSONE 10 mg PO DIRECTED #30 tab 05/11/23 Rx Allergies Allergy/AdvReac Type Severity Reaction Status Date / Time No Known Allergies Allergy Verified 05/07/23 11:26 Physical Exam Vitals: Vital Signs Temp Pulse Pulse Resp BP Pulse Ox 05/11/23 13:20 99.4 F 88 18 122/64 90 L 05/11/23 12:21 75 05/11/23 12:14 73 05/11/23 08:30 72 05/11/23 07:09 99.1 F 76 17 114/68 92 L 05/11/23 02:00 98.8 F 68 17 117/75 93 L 05/10/23 21:10 71 05/10/23 21:01 74 05/10/23 19:48 98.2 F 86 18 134/73 92 L Intake and Output 05/11/23 05/11/23 05/11/23 06:59 14:59 22:59 Other: # Voids 3 GENERAL: The patient is alert and oriented x3, not in any acute distress. Well developed, well nourished. Patient is currently on 2 L of O2 nasal cannula with a pulse ox of 90% HEENT: Pupils are round and equally reacting to light. EOMI. No scleral icterus. No conjunctival pallor. Normocephalic, atraumatic. No pharyngeal erythema. No thyromegaly. CARDIOVASCULAR: S1 and S2 present. No murmurs, rubs, or gallops. PULMONARY: Chest is clear to auscultation, no wheezing or crackles. ABDOMEN: Soft, tenderness left upper quadrant, normoactive bowel sounds. No palpable organomegaly. MUSCULOSKELETAL: No joint swelling or deformity. EXTREMITIES: No cyanosis, clubbing, or pedal edema. NEUROLOGICAL: Gross neurological examination did not reveal any focal deficits. SKIN: No rashes. Results - Laboratory Findings CBC and BMP: 05/11/23 04:17 05/11/23 04:17 PT/INR, D-dimer PT 9.9 sec (9.0-12.0) 05/07/23 06: INR 0.9 (<1.2) 05/07/23 06: D-Dimer 0.71 mg/L FEU (<0.60) H 05/07/23 06:23 Abnormal lab findings: Abnormal Labs 05/07/23 05/07/23 05/07/23 06:23 06:23 09:17 RBC Hgb Hct MCHC D-Dimer 0.71 H BUN 20 H Creatinine Glucose 146 H POC Glucose (mg/dL) Hemoglobin A1c Calcium C-Reactive Protein Total Protein Albumin Ur Specific [place] >1.050 H Urine Protein Trace H Urine Glucose (UA) Trace H Urine Ketones Trace H 05/07/23 05/07/23 05/07/23 16:21 22:44 23:26 RBC Hgb Hct MCHC D-Dimer BUN Creatinine Glucose POC Glucose (mg/dL) 115 H 173 H 152 H Hemoglobin A1c Calcium C-Reactive Protein Total Protein Albumin Ur Specific [place] Urine Protein Urine Glucose (UA) Urine Ketones 05/08/23 05/08/23 05/08/23 02:54 05:44 08:08 RBC 3.39 L 3.24 L Hgb 10.5 L 9.9 L Hct 32.0 L 30.4 L MCHC D-Dimer BUN Creatinine Glucose POC Glucose (mg/dL) 161 H Hemoglobin A1c Calcium C-Reactive Protein Total Protein Albumin Ur Specific [place] Urine Protein Urine Glucose (UA) Urine Ketones 05/08/23 05/08/23 05/08/23 11:47 16:51 21:11 RBC Hgb Hct MCHC D-Dimer BUN Creatinine Glucose POC Glucose (mg/dL) 129 H 129 H 146 H Hemoglobin A1c Calcium C-Reactive Protein Total Protein Albumin Ur Specific [place] Urine Protein Urine Glucose (UA) Urine Ketones 05/09/23 05/09/23 05/09/23 06:14 06:44 06:44 RBC 2.95 L Hgb 9.0 L Hct 27.5 L MCHC D-Dimer BUN Creatinine Glucose POC Glucose (mg/dL) 133 H Hemoglobin A1c 6.5 H Calcium C-Reactive Protein Total Protein Albumin Ur Specific [place] Urine Protein Urine Glucose (UA) Urine Ketones 05/09/23 05/09/23 05/09/23 11:58 17:09 19:49 RBC Hgb Hct MCHC D-Dimer BUN Creatinine Glucose POC Glucose (mg/dL) 157 H 121 H 124 H Hemoglobin A1c Calcium C-Reactive Protein Total Protein Albumin Ur Specific [place] Urine Protein Urine Glucose (UA) Urine Ketones 05/10/23 05/10/23 05/10/23 05:30 05:30 05:31 RBC 3.10 L Hgb 9.2 L Hct 29.1 L MCHC 31.6 L D-Dimer BUN 7.3 L Creatinine Glucose 114 H POC Glucose (mg/dL) 131 H Hemoglobin A1c Calcium 8.3 L C-Reactive Protein 8.80 H Total Protein 5.8 L Albumin Ur Specific [place] Urine Protein Urine Glucose (UA) Urine Ketones 05/10/23 05/10/23 05/10/23 12:00 16:57 20:42 RBC Hgb Hct MCHC D-Dimer BUN Creatinine Glucose POC Glucose (mg/dL) 166 H 236 H 186 H Hemoglobin A1c Calcium C-Reactive Protein Total Protein Albumin Ur Specific [place] Urine Protein Urine Glucose (UA) Urine Ketones 05/11/23 05/11/23 05/11/23 04:17 04:17 06:04 RBC 3.05 L Hgb 9.4 L Hct 28.0 L MCHC D-Dimer BUN Creatinine 0.49 L Glucose 120 H POC Glucose (mg/dL) 126 H Hemoglobin A1c Calcium 8.3 L C-Reactive Protein Total Protein 5.9 L Albumin 3.2 L Ur Specific [place] Urine Protein Urine Glucose (UA) Urine Ketones 05/11/23 11:29 RBC Hgb Hct MCHC D-Dimer BUN Creatinine Glucose POC Glucose (mg/dL) 182 H Hemoglobin A1c Calcium C-Reactive Protein Total Protein Albumin Ur Specific [place] Urine Protein Urine Glucose (UA) Urine Ketones - Diagnostic Findings Chest x-ray: image reviewed CT scan - chest: image reviewed Assessment and Plan Plan: Episodic fever, could be related to formation of a splenic hematoma. There is a spontaneous hematoma. Right lower lobe pneumonia is possible and the patient's code IV Zosyn for now. Chest x-ray more consistent with atelectatic changes in lung bases and the same as for the CT angiogram of the chest that was done at time of admission. No evidence of any pulmonary embolism. Acute hypoxic respiratory failure currently on 2 L O2 nasal cannula Pulmonary bibasilar atelectatic changes Spontaneous Splenic hematoma, subcapsular Acute anemia secondary to above and the patient's hemoglobin is stable for now. The hemoglobin is stable for now. Diabetes mellitus type 2 Migraines Psoriatic arthritis Depression Migraines Plan Incentive spirometer Wean FiO2 as tolerated Monitor hemoglobin Reasonable to give her a course of antibiotics with Augmentin at the time of discharge, currently on Zosyn Pro calcitonin level is low Currently afebrile We'll follow the patient along with the medical team
[2023-05-11] MEDS ORDERED: INSULIN DETEMIR (LEVEMIR) 100 UNIT/ML SYR SQ SCH (21:00)
[2023-05-11 21:01] LABS: Glucose,Whole Blood 146 mg/dL (70-110)
[2023-05-11] MEDS: BUDESONIDE 0.25 MG/2 ML NEBU INHALATION SCH (21:28)
[2023-05-11] MEDS: MIRTAZAPINE 15 MG TAB PO SCH (21:39)
[2023-05-11] MEDS: CYCLOBENZAPRINE 5 MG TAB PO PRN (21:39)
[2023-05-11] MEDS: busPIRone HCl 10 MG TAB PO SCH (21:39)
[2023-05-12] MEDS: PIPERACILLIN-TAZOBACTAM 3.375 GM in SODIUM CHLORIDE 0.9% 100 ML IVPB SCH ×2 (00:06→08:27)
[2023-05-12] MEDS: HYDROcodone/APAP 5-325MG 1 EACH TAB PO PRN (04:15)
[2023-05-12 06:22] LABS: Glucose,Whole Blood 105 mg/dL (70-110)
[2023-05-12] MEDS: INSULIN ASPART (NovoLOG) 100 UNIT/ML VIAL SQ SCH ×2 (08:14→13:12)
[2023-05-12] MEDS: HYDROmorphone 1 MG/ML 1 ML SYRINGE IVP PRN (08:23)
[2023-05-12] MEDS: LORATADINE 10 MG TAB PO SCH (08:27)
[2023-05-12] MEDS: busPIRone HCl 5 MG TAB PO SCH (08:27)
[2023-05-12] MEDS: DULoxetine HCL 60 MG CAPSULE.DR PO SCH (08:27)
[2023-05-12] MEDS: PANTOPRAZOLE 40 MG TABLET PO SCH (08:27)
[2023-05-12] MEDS: predniSONE 20 MG TAB PO SCH (08:27)
[2023-05-12] MEDS: FLUTICASONE 50MCG/SPRAY NASAL 16GM EA NOSTRIL SCH (08:29)
[2023-05-12 08:45] VITALS: BP 146/81; RESP 16; TEMP 98.6
[2023-05-12] MEDS: IPRATROPIUM-ALBUTEROL 3 ML NEB INHALATION SCH ×2 (08:49→11:50)
[2023-05-12] MEDS: BUDESONIDE 0.25 MG/2 ML NEBU INHALATION SCH (08:56)
[2023-05-12 09:02] VITALS: PULSE 60
[2023-05-12 09:02] LABS: HGB 9.5 gm/dL (11.4-16.0); MCH 30.2 pg (25.0-35.0); MCHC 32.9 g/dL (31.0-37.0); MCV 91.8 fL (80.0-100.0); Mean Platelet Volume 8.7; Platelet Count 249 k/uL (150-450); RBC 3.16 m/uL (3.80-5.40); RDW 14.1 % (11.5-15.5); WBC 8.5 k/uL (3.8-10.6)
[2023-05-12] MEDS: SODIUM CHLORIDE 0.9% 1,000 ML IV SCH (11:17)
[2023-05-12 11:33] LABS: Glucose,Whole Blood 152 mg/dL (70-110)
[2023-05-12 14:14] VITALS: BMI 31.6
--- NOTE | 2023-05-12 14:28 | P.PN ---
Subjective Progress Note Date: 05/12/23 I was asked to evaluate this patient regarding any pneumonia. She is 8-year-old female patient who came in today burst above and because of abdominal pain. She woke up and she was having epigastric pain radiating to her back. She has also some nausea and emesis. Denies having any trauma to her abdomen. No history of fall. She does not take any form of anticoagulation. She came into the emergency and the computed tomography scan of the chest that was done with a CT angiogram protocol that showed no evidence of any pulmonary embolism and it showed subsegmental atelectasis. CAT scan of the abdomen and pelvis showed a moderate size some capsular splenic hematoma. There was small amount of complex fluid in the left paracolic gutter and pelvis likely representing a hemorrhage. There was also a hemangioma within the right liver. Accordingly, the patient was hospitalized. Neurosurgery consultation has been obtained. She did encounter an acute anemia and that he should hemoglobin was at 14 and a drop down to 9.4. She has not received any blood transfusions. She is also known to have diabetes mellitus type 2, migraines, thoracic arthritis, remote history of DVT and history of depression. She also encountered acute hypoxic respiratory failure and currently she is on 2 L of oxygen nasal cannula with a pulse ox of 90%. Her pro calcitonin level was normal. A repeat chest x-ray showed some atelectatic changes in the lung bases bilaterally and there was also a consultation for right lower lobe pneumonia. The patient was covered with IV Zosyn and she continued to have low-grade fever. No significant sputum production. Most recent white cell count is at 9 with a hemoglobin of 9.4. BUN is at 10 with a creatinine of 0.4 and sodium level is at 139. In summary, the patient is SPLENIC hematoma. She has been tolerating diet well. Hemoglobin has remained stable over the past 24-48 hours. 05/12/2023, the patient is on room air oxygen, the patient's destination is improved since yesterday. No significant shortness of breath. Ambulating. No nausea. No vomiting. No abdominal pain. No chest pain. She has been using the incentive spirometer. Please refer to diabetes, consultation from yesterday. The patient is doing very well for now. She is looking to get di scharged today. The patient has a stable hemoglobin of 9.5. Objective - Vital Signs Vital signs: Vital Signs Temp 98.6 F 05/12/23 08:00 Pulse 60 05/12/23 09:01 Resp 16 05/12/23 11:20 BP 146/81 05/12/23 08:00 Pulse Ox 97 05/12/23 08:50 FiO2 Intake & Output 05/11/23 05/12/23 05/12/23 18:59 06:59 18:59 Intake Total 1100 Balance 1100 Intake: Intake, IV Titration 1100 Amount Piperacillin-Tazobactam 3 200 .375 gm In Sodium Chloride 0.9% 100 ml @ 25 mls/hr IVPB Q8HR [facility] Rx# :[id number] Sodium Chloride 0.9% 1, 900 000 ml @ 75 mls/hr IV . [id number] [facility] Rx#:[id number] Other: # Voids 3 - Exam GENERAL: The patient is alert and oriented x3, not in any acute distress. Well developed, well nourished. Patient is currently on room air oxygen HEENT: Pupils are round and equally reacting to light. EOMI. No scleral icterus. No conjunctival pallor. Normocephalic, atraumatic. No pharyngeal erythema. No thyromegaly. CARDIOVASCULAR: S1 and S2 present. No murmurs, rubs, or gallops. PULMONARY: Chest is clear to auscultation, no wheezing or crackles. ABDOMEN: Soft, tenderness left upper quadrant, normoactive bowel sounds. No palpable organomegaly. MUSCULOSKELETAL: No joint swelling or deformity. EXTREMITIES: No cyanosis, clubbing, or pedal edema. NEUROLOGICAL: Gross neurological examination did not reveal any focal deficits. SKIN: No rashes. - Labs CBC & Chem 7: 05/12/23 08:28 05/11/23 04:17 Labs: Abnormal Lab Results - Last 24 Hours (Table) 05/11/23 05/11/23 05/11/23 Range/Units 04:17 16:56 20:57 RBC (3.80-5.40) m/uL Hgb (11.4-16.0) gm/dL Hct (34.0-46.0) % Creatinine 0.49 L (0.52-1.04) mg/dL Glucose 120 H (74-99) mg/dL POC Glucose (mg/dL) 219 H 146 H (70-110) mg/dL Calcium 8.3 L (8.4-10.2) mg/dL Total Protein 5.9 L (6.3-8.2) g/dL Albumin 3.2 L (3.5-5.0) g/dL 05/12/23 05/12/23 Range/Units 08:28 11:31 RBC 3.16 L (3.80-5.40) m/uL Hgb 9.5 L (11.4-16.0) gm/dL Hct 29.0 L (34.0-46.0) % Creatinine (0.52-1.04) mg/dL Glucose (74-99) mg/dL POC Glucose (mg/dL) 152 H (70-110) mg/dL Calcium (8.4-10.2) mg/dL Total Protein (6.3-8.2) g/dL Albumin (3.5-5.0) g/dL Microbiology - Last 24 Hours (Table) 05/10/23 05:30 Blood Culture - Preliminary Blood Assessment and Plan Plan: Episodic fever, could be related to formation of a splenic hematoma. There is a spontaneous hematoma. Right lower lobe pneumonia is possible and the patient's code IV Zosyn for now. Chest x-ray more consistent with atelectatic changes in lung bases and the same as for the CT angiogram of the chest that was done at time of admission. No evidence of any pulmonary embolism. Acute hypoxic respiratory failure secondary to bibasilar pulmonary atelectasis and chronically elevated right hemidiaphragm, improved and the patient's occupation is also improved and she is currently on room air oxygen. Pulmonary bibasilar atelectatic changes, using the incentive spirometer Spontaneous Splenic hematoma, subcapsular Acute anemia secondary to above and the patient's hemoglobin is stable for now. The hemoglobin is stable for now. Diabetes mellitus type 2 Migraines Psoriatic arthritis Depression Migraines Plan Oxygenation improved No respiratory difficulties Incentive spirometer Patient is currently on room air oxygen Monitor hemoglobin shows stable findings with a hemoglobin 9.5 Reasonable to give her a course of antibiotics with Augmentin at the time of discharge, currently on Zosyn Pro calcitonin level is low Currently afebrile Discharged per medical team.
--- NOTE | 2023-05-12 14:42 | P.PN ---
Subjective Progress Note Date: 05/12/23 CHIEF COMPLAINT: Splenic hematoma HISTORY OF PRESENT ILLNESS: Patient continues to feel better each day. She denies any nausea or vomiting. She is tolerating diet. Patient seen by pulmonary service regarding the hypoxia in which they felt was related atelectasis. Now improved. Hemoglobin stable at 9.5. Repeat computed tomography scan had shown increased size of subcapsular splenic hemorrhage from prior examination. Grade 3. Linear regions within the spleen suggesting laceration. No obvious active extravasation at this time. Computed tomography scan results were reviewed with Dr. hannon. These are expected findings. PHYSICAL EXAM: VITAL SIGNS: Reviewed. GENERAL: Well-developed in no acute distress. ABDOMEN: Soft. Nondistended. mild Tenderness with palpation in the left upper quadrant epigastric and right upper quadrant NEUROLOGIC: Alert and oriented. Cranial nerves II through XII grossly intact. ASSESSMENT: 1. Spontaneous splenic hematoma PLAN: -No surgical intervention planned. Dr. hannon reviewed computed tomography scan findings. These are expected findings. -Patient can be discharged from surgical standpoint with outpatient follow-up Physician Pl[employer] Fitter note has been reviewed by physician. Signing provider agrees with the documented findings, assessment, and plan of care. Objective - Vital Signs Vital signs: Vital Signs Temp 98.6 F 05/12/23 08:00 Pulse 60 05/12/23 09:01 Resp 16 05/12/23 08:00 BP 146/81 05/12/23 08:00 Pulse Ox 97 05/12/23 08:50 FiO2 Intake & Output 05/11/23 05/12/23 05/12/23 18:59 06:59 18:59 Intake Total 1100 Balance 1100 Intake: Intake, IV Titration 1100 Amount Piperacillin-Tazobactam 3 200 .375 gm In Sodium Chloride 0.9% 100 ml @ 25 mls/hr IVPB Q8HR [facility] Rx# :[id number] Sodium Chloride 0.9% 1, 900 000 ml @ 75 mls/hr IV . [id number] [facility] Rx#:[id number] Other: # Voids 3 - Labs CBC & Chem 7: 05/12/23 08:28 05/11/23 04:17 Labs: Abnormal Lab Results - Last 24 Hours (Table) 05/11/23 05/11/23 05/11/23 Range/Units 04:17 11:29 16:56 RBC (3.80-5.40) m/uL Hgb (11.4-16.0) gm/dL Hct (34.0-46.0) % Creatinine 0.49 L (0.52-1.04) mg/dL Glucose 120 H (74-99) mg/dL POC Glucose (mg/dL) 182 H 219 H (70-110) mg/dL Calcium 8.3 L (8.4-10.2) mg/dL Total Protein 5.9 L (6.3-8.2) g/dL Albumin 3.2 L (3.5-5.0) g/dL 05/11/23 05/12/23 Range/Units 20:57 08:28 RBC 3.16 L (3.80-5.40) m/uL Hgb 9.5 L (11.4-16.0) gm/dL Hct 29.0 L (34.0-46.0) % Creatinine (0.52-1.04) mg/dL Glucose (74-99) mg/dL POC Glucose (mg/dL) 146 H (70-110) mg/dL Calcium (8.4-10.2) mg/dL Total Protein (6.3-8.2) g/dL Albumin (3.5-5.0) g/dL Microbiology - Last 24 Hours (Table) 05/10/23 05:30 Blood Culture - Preliminary Blood
--- NOTE | 2023-05-13 18:48 | P.DS ---
Providers Date of admission: 05/07/23 10:19 Attending physician: Nicol Schmitz Consults: 05/07/23 09:27 Consult Physician Urgent Consulting Provider: Jona Camarillo Consult Reason/Comments: Medical management Do you want consulting provider notified?: Yes 05/09/23 14:15 Consult Physician Routine Consulting Provider: Mauri Ignacio Consult Reason/Comments: Fever Do you want consulting provider notified?: Yes 05/11/23 15:49 Consult Physician Urgent Consulting Provider: Rosa Nguyen Consult Reason/Comments: failed home 02, pna, hypoxia Do you want consulting provider notified?: Yes 05/11/23 16:52 Consult Physician Routine Consulting Provider: Pb Garcia Consult Reason/Comments: Splenic hematoma Do you want consulting provider notified?: Yes Primary care physician: Physician Nonstaff Hospital Course: Final Diagnosis Abdominal pain with findings of splenic hematoma and left paracolic gutter hemorrhage on imaging hemoglobin stable. Anemia possibly acute blood loss Acute hypoxic respiratory failure likely due to basilar atelectasis / right lower lobe infiltrate consistent with community acquired pneumonia. Diabetes mellitus type 2 History of psoriatic arthritis History of migraines Remote history of DVT in her 20s Elevated Ddimer, CTA ruled out pulmonary embolism. Depression Full Code Discharge Disposition Patient is stable for discharge home patient will be traveling back to [place] where she lives. Patient did pass her home oxygen test with oxygen saturations up to 95% more ambulating. She does report improvement in her shortness of breath. Recommending a course of oral Augmentin on discharge for 7 days. Additionally patient is given a prednisone taper and discharged on Symbicort and albuterol inhaler. Patient to resume all other home medications. Patient is to follow-up with a general surgeon for further evaluation of the splenic hematoma hemoglobin is stable and would recommend to repeat labs in 2-3 days upon return to [place] after follow up with her PCP. Hospital course History of present illness; patient is 62-year-old lady who is visiting [place] from [place] came to the ER because of abdominal pain. Patient stated that she woke up this morning with abdominal pain that was located in the epigastric area, radiating towards her back. Associated with nausea and vomiting. Denied any fever or chills. Patient stated she felt as if something was wrapped around her upper part of abdominal. Denies any recent trauma to her belly. Denies being on any blood thinners. It was no complain of any altered bowel movements. Denies any blood in her stools. Denied any blood in the vomiting. Because of the symptoms patient came to the ER. CT abdominal and pelvis done showed moderate sized subcapsular splenic hematoma. Small amount of complex fluid in the left paracolic gutter and pelvis likely representing hemorrhage. Indeterminate echo dense right hepatic lobe, probable hemangioma. CT chest done showed no evidence of PE, bibasilar subsegmental atelectasis. EKG done in the ER showed ventricle rate 91, QRS 101, no ST segment elevation seen, T-wave inversion seen in V3 leads. Patient was initially admitted to the hospital under general surgery with a consult placed to medicine. Gen. surgery was recommended conservative management and monitoring of hemoglobin. Hemoglobin on admission was 14.0 which did drop to 9.5 however remained stable over the last 5 days. Additionally patient was reporting history symptoms of shortness of breath and hypoxia over the last month at home. She was found to be 87% on room air. She has had no leukocytosis and procalcitonin level was negative. There was evidence for right lower lobe infiltrate on the chest xray. and follow up chest xray does show interval improvement in the overall lung inflation pattern. She received updrafts and IV antibiotics and pulmonary consultation and hypoxia did improved. Had follow up abdominal pelvis CT increased size of subcapsular splenic hemorrhage from prior examination. Grade 3: Linear regions within the spleen suggesting lacerations. No obvious active extravastation at this time. Similar small amount of complex fluid within the pelvis related to hemorrhage. General surgery evaluated the CT and felt findings stable with out concern and as hemoglobin stable was cleared for DC and to follow up outpatient. Patient is currently denying chest pain, denies shortness of breath. Denying nausea vomiting diarrhea. Does have mild diffuse abdominal discomfort which has overall improved since admission. Patient would like to discharge home. She is afebrile, heart rate 72, blood pressure 146/81 and she is 97% room air. Please see medication reconciliation for a list of current medication. Thank you for allowing us to participate in the care of this patient. The impression and plan of care has been dictated by Sapphire Augustine, Nurse Practitioner as directed. Dr. Nadir MD I have performed a history and physical examination and medical decision making of this patient, discussed the same with the dictator, and agree with the dictators assessment and plan as written, documented as a scribe. Based on total visit time, I have performed more than 50% of this visit. Patient Condition at Discharge: Stable Plan - Discharge Summary Discharge Rx Participant: Yes New Discharge Prescriptions: New Amoxic-Pot Clav 875-125Mg [Augmentin 875-125] 1 tab PO Q12HR 7 Days #14 tab Benzocaine/Menthol Lozeng [Cepacol lozenge] 1 each MUCOUS MEM Q4HR PRN lozenge PRN Reason: Cough Fluticasone Nasal [place] [Flonase Nasal [place]] 2 spray EA NOSTRIL DAILY #7 ml predniSONE 10 mg PO DIRECTED #30 tab Budesonide-Formot 160-4.5 Mcg [Symbicort 160-4.5 Mcg Inhaler] 2 puff INHALATION BID 30 Days #10.2 gm Loratadine [Claritin] 5 mg PO DAILY #30 tab Acetaminophen Tab [Tylenol] 650 mg PO Q6HR PRN tab PRN Reason: Fever And/ Or Pain Albuterol Inhaler [Ventolin Hfa Inhaler] 2 puff INHALATION Q6H PRN 30 Days #1 each PRN Reason: Shortness Of Breath Continue metHOTREXate sodium [Methotrexate] 7.5 mg PO WE Mirtazapine [Remeron] 30 mg PO HS Cyclobenzaprine [Flexeril] 5 mg PO BID PRN PRN Reason: Muscle Spasm busPIRone HCL 30 mg PO HS Ergocalciferol [Vitamin D2 (1250 Mcg = 55412 Iu)] 1,250 mcg PO WE DULoxetine HCL [Cymbalta] 120 mg PO DAILY busPIRone HCL 15 mg PO DAILY HYDROcodone/APAP 10-325MG [[place] 10-325] 1 tab PO Q6H PRN PRN Reason: Pain Discharge Medication List Cyclobenzaprine [Flexeril] 5 mg PO BID PRN 05/07/23 [History] DULoxetine HCL [Cymbalta] 120 mg PO DAILY 05/07/23 [History] Ergocalciferol [Vitamin D2 (1250 Mcg = 23169 Iu)] 1,250 mcg PO WE 05/07/23 [History] HYDROcodone/APAP 10-325MG [[place] 10-325] 1 tab PO Q6H PRN 05/07/23 [History] Mirtazapine [Remeron] 30 mg PO HS 05/07/23 [History] busPIRone HCL 15 mg PO DAILY 05/07/23 [History] busPIRone HCL 30 mg PO HS 05/07/23 [History] metHOTREXate sodium [Methotrexate] 7.5 mg PO WE 05/07/23 [History] Acetaminophen Tab [Tylenol] 650 mg PO Q6HR PRN tab 05/11/23 [Rx] Albuterol Inhaler [Ventolin Hfa Inhaler] 2 puff INHALATION Q6H PRN 30 Days #1 each 05/11/23 [Rx] Amoxic-Pot Clav 875-125Mg [Augmentin 875-125] 1 tab PO Q12HR 7 Days #14 tab 05/11/23 [Rx] Benzocaine/Menthol Lozeng [Cepacol lozenge] 1 each MUCOUS MEM Q4HR PRN lozenge 05/11/23 [Rx] Budesonide-Formot 160-4.5 Mcg [Symbicort 160-4.5 Mcg Inhaler] 2 puff INHALATION BID 30 Days #10.2 gm 05/11/23 [Rx] Fluticasone Nasal [place] [Flonase Nasal [place]] 2 spray EA NOSTRIL DAILY #7 ml 05/11/23 [Rx] Loratadine [Claritin] 5 mg PO DAILY #30 tab 05/11/23 [Rx] predniSONE 10 mg PO DIRECTED #30 tab 05/11/23 [Rx] Follow up Appointment(s)/Referral(s): Nonstaff,Physician [Primary Care Provider] - 1-2 days Pb Garcia MD [STAFF PHYSICIAN] - 1 Week Patient Instructions/Handouts: Pneumonia (DC), Pulse Oximetry (DC) Activity/Diet/Wound Care/Special Instructions: Activity Limited until follow-up Follow-up with primary care provider in [place] Patient to follow-up as soon as possible with primary care provider as patient should have follow up outpatient CT with contrast outpatient of the abdomen Patient to continue on antibiotics for 1 week Discharge Disposition: HOME SELF-CARE
== END 2023-05-12 15:16 | disposition home or self-care (01) | DRG 814 ==
LOC: EC 05:55 → 4SSUR 10:19
PROVIDERS: ADMIT Internal Medicine; ATTEND Internal Medicine
DX: D73.5 Infarction of spleen (principal); J18.9 Pneumonia, unspecified organism; J96.01 Acute respiratory failure with hypoxia; D62 Acute posthemorrhagic anemia; D18.03 Hemangioma of intra-abdominal structures; F32.A Depression, unspecified; E11.9 Type 2 diabetes mellitus without complications; G43.909 Migraine, unspecified, not intractable, without status migrainosus; K21.9 Gastro-esophageal reflux disease without esophagitis; L40.50 Arthropathic psoriasis, unspecified; M79.7 Fibromyalgia; Z20.822 Contact with and (suspected) exposure to COVID-19; Z79.51 Long term (current) use of inhaled steroids; Z79.899 Other long term (current) drug therapy; Z80.41 Family history of malignant neoplasm of ovary; Z86.718 Personal history of other venous thrombosis and embolism
CPT/HCPCS: 36415; 71046; 71275; 74177; 76705; 80053; 81003; 83036; 83690; 83735; 83880; 84145; 84484; 85025; 85027; 85379; 85610; 85730; 86140; 86850; 86900; 86901; 87040; 87635; 93005; 94640; 94760; 96361; 96374; 96375; 96376; 99285